=== PATIENT | male | born 1945 | race Caucasian/White ===

== ENCOUNTER → 2019-04-23 12:09 | Outpatient (CLI) | payer MEDICARE, SELFPAY ==
[2015-05-11 23:44] VITALS: BMI 35.0
--- NOTE | 2019-04-23 12:28 | RAD_ITS ---
STUDY: X-RAY - ABDOMEN/PELVIS REASON FOR EXAM: Male, 74 years old. Constipation. Fecal impaction. TECHNIQUE: AP supine and upright views of the abdomen and pelvis. COMPARISON: None. FINDINGS: Normal visualized lung bases. There is an abundance of fecal material throughout the colon. There is no demonstrated free abdominal air. The visualized liver, spleen and kidneys are grossly normal in size and morphology. Atherosclerotic changes of the abdominal aorta and the splenic artery. There are diffuse degenerative changes of the visualized lumbar spine. Status post right total hip replacement. RAD/Abd Inc Decub and/or Erect IMPRESSION: Large amount of fecal material is seen in the colon. Electronically Signed: Anil Phillips, at 13:06 EDT , Service support ,
[2019-04-23 12:45] LABS: Absolute Lymphocyte Count 3.13 X10^3/uL (0.83-4.51); Absolute Neutrophil Count 6.1 X10^3/uL (2.0-7.7); Basophil# 0.03 X10^3/uL; Basophil% 0.3 % (0-1); Eosinophils% 1.9 % (0-5); Hematocrit 45.1 % (40-54); Hemoglobin 14.6 g/dL (13.0-16.5); Lymphocyte # 3.13 X10^3/ul (4.0); Lymphocyte % 30.4 % (19-41); Mean Corp Hgb Conc 32.4 g/dL (32-36); Mean Corpuscular Hgb 26.8 pg (27.0-32.0); Mean Corpuscular Volume 82.9 fL (80-94); Mean Platelet Vol. 10.6 fl (6.2-12.0); Monocyte# 0.76 X10^3/uL; Monocyte% 7.4 % (0-10); NRBC Flagged by Analyzer 0 % (0-5); Neutrophil # 6.14 X10^3/uL (2.7-7.7); Neutrophil % 59.5 % (47-70); Platelet Count 241 K/mm3 (150-450); RBC Distribution Width CV 13.3 % (11.6-14.6); RBC Distribution Width SD 39.8 fl (35.1-43.9); Red Blood Count 5.44 M/mm3 (4.6-6.2); White Blood Count 10.3 K/mm3 (4.4-11.0)
[2019-04-23 17:15] LABS: ALB/GLOB Ratio 1.1 RATIO (0.9-2.4); AST(SGOT) 33 U/L (15-37); Alanine Aminotransfer ALT/SGPT 50 U/L (16-61); Albumin, Serum 3.9 g/dL (3.2-5.0); Alkaline Phosphatase 77 U/L (45-117); Anion Gap 12 (5-15); BUN 31 mg/dL (7-18); BUN/Creat Ratio 18.2 RATIO (10-20); Calcium,Total 9.9 mg/dL (8.5-10.1); Chloride 97 mmol/L (98-107); Cholesterol 166 mg/dL (200); EST Glomerular Filtration Rate 42 mL/min (>60); Est Glom Filt Rate - Afr Amer 51 mL/min (>60); Globulin 3.7 g/dL (2.2-4.2); Glucose 120 mg/dL (74-106); High Density Lipoprotein 44 mg/dL; Potassium 3.4 mmol/L (3.5-5.1); Protein, Total 7.6 g/dL (6.4-8.2); Sodium Level 139 mmol/L (136-145); Triglycerides 215 mg/dL; Very Low Density Lipoprotein 43 mg/dL (5-40)
== END ==
LOC: POLAB3 12:10 → RAD 12:25
PROVIDERS: Family Provider Family Medicine Geriatric Medicine; PCP Family Medicine Geriatric Medicine; Referring Provider Family Medicine Geriatric Medicine; Visit Provider Family Medicine Geriatric Medicine
DX: K56.41 Fecal impaction (principal); E78.5 Hyperlipidemia, unspecified; I10 Essential (primary) hypertension
CPT/HCPCS: 36415; 74019; 80053; 80061; 84443; 85025

== ENCOUNTER → 2019-04-30 14:56 | Outpatient (CLI) | payer MEDICARE, SELFPAY ==
[2015-05-11 23:44] VITALS: BMI 35.0
[2019-04-30 16:21] LABS: Anion Gap 6 (5-15); BUN 18 mg/dL (7-18); BUN/Creat Ratio 16.8 RATIO (10-20); Calcium,Total 9.2 mg/dL (8.5-10.1); Chloride 106 mmol/L (98-107); Creatinine, Serum 1.07 mg/dL (0.70-1.30); EST Glomerular Filtration Rate 72 mL/min (>60); Est Glom Filt Rate - Afr Amer 87 mL/min (>60); Glucose 98 mg/dL (74-106); Potassium 4.1 mmol/L (3.5-5.1); Sodium Level 142 mmol/L (136-145)
== END ==
PROVIDERS: Family Provider Family Medicine Geriatric Medicine; PCP Family Medicine Geriatric Medicine; Visit Provider Family Medicine Geriatric Medicine
DX: N18.3 Chronic kidney disease, stage 3 (moderate) (principal)
CPT/HCPCS: 36415; 80048

== ENCOUNTER → 2019-05-11 16:08 | Outpatient (CLI) | payer MEDICARE, SELFPAY ==
[2015-05-11 23:44] VITALS: BMI 35.0
--- NOTE | 2019-05-11 16:10 | RAD_ITS ---
STUDY: X-RAY - PELVIS AND LEFT HIP REASON FOR EXAM: Male, 74 years old. Pain TECHNIQUE: 3 views of the pelvis and hip. COMPARISON: None. FINDINGS: There is a non-specific bowel gas pattern. Radiation seeds noted within the bed of the prostate Normal bilateral iliac wings, sacroiliac joints and visualized sacrum. Normal bilateral superior and inferior pubic rami. Normal pubic symphysis. Normal bilateral ischial tuberosities. Right hip prosthesis noted in anatomic alignment and position. Concentric narrowing of the left hip joint with mild acetabular and femoral head spurring. RAD/HIP, UNI W/ Pelvis 2-3 Views IMPRESSION: Advanced arthritic changes of the left hip Electronically Signed: Blaze Dickson MD at 17:00 EDT , Service support ,
--- NOTE | 2019-05-11 16:10 | RAD_ITS ---
STUDY: X-RAY - RIGHT KNEE REASON FOR EXAM: Male, 74 years old. Pain TECHNIQUE: 4 view(s) of the knee. COMPARISON: None. FINDINGS: Normal visualized distal femur. Normal visualized proximal tibia and fibula. Normal proximal tibiofibular articulation. Narrowed medial femorotibial compartment. Normal lateral femorotibial compartment. Narrowed patellofemoral articulation. The soft tissue structures are unremarkable. RAD/Knee 4 or More Views IMPRESSION: Degenerative changes. No acute fracture or other significant bony pathology Electronically Signed: Blaze Dickson MD at 17:00 EDT , Service support ,
== END ==
PROVIDERS: Family Provider Family Medicine Geriatric Medicine; PCP Family Medicine Geriatric Medicine; Referring Provider Family Medicine Geriatric Medicine; Visit Provider Family Medicine Geriatric Medicine
DX: M17.11 Unilateral primary osteoarthritis, right knee (principal); M16.12 Unilateral primary osteoarthritis, left hip
CPT/HCPCS: 73502; 73564

== ENCOUNTER → 2019-07-23 11:28 | Outpatient (CLI) | payer MEDICARE, SELFPAY ==
[2019-06-11 15:37] VITALS: BMI 34.1
[2019-07-23 12:37] LABS: Absolute Lymphocyte Count 2.11 X10^3/uL (0.83-4.51); Absolute Neutrophil Count 5.6 X10^3/uL (2.0-7.7); Basophil# 0.04 X10^3/uL; Basophil% 0.4 % (0-1); Eosinophil# 0.27 X10^3/uL; Hematocrit 43.2 % (40-54); Hemoglobin 13.7 g/dL (13.0-16.5); Lymphocyte # 2.11 X10^3/ul (4.0); Lymphocyte % 23.5 % (19-41); Mean Corp Hgb Conc 31.7 g/dL (32-36); Mean Corpuscular Hgb 27.2 pg (27.0-32.0); Mean Corpuscular Volume 85.9 fL (80-94); Mean Platelet Vol. 10.7 fl (6.2-12.0); Monocyte# 0.84 X10^3/uL; Monocyte% 9.4 % (0-10); NRBC Flagged by Analyzer 0 % (0-5); Neutrophil # 5.62 X10^3/uL (2.7-7.7); Neutrophil % 62.8 % (47-70); Platelet Count 227 K/mm3 (150-450); RBC Distribution Width CV 14.4 % (11.6-14.6); RBC Distribution Width SD 44.9 fl (35.1-43.9); Red Blood Count 5.03 M/mm3 (4.6-6.2)
[2019-07-23 12:54] LABS: Vitamin D,25 Hydroxy 23.5 ng/mL (29.95-100.01)
[2019-07-23 12:57] LABS: ALB/GLOB Ratio 0.9 RATIO (0.9-2.4); AST(SGOT) 32 U/L (15-37); Alanine Aminotransfer ALT/SGPT 43 U/L (16-61); Albumin, Serum 3.4 g/dL (3.2-5.0); Alkaline Phosphatase 109 U/L (45-117); Anion Gap 6 (5-15); BUN 22 mg/dL (7-18); BUN/Creat Ratio 20.8 RATIO (10-20); Chloride 104 mmol/L (98-107); Cholesterol 184 mg/dL (200); Creatinine, Serum 1.06 mg/dL (0.70-1.30); EST Glomerular Filtration Rate 72 mL/min (>60); Est Glom Filt Rate - Afr Amer 88 mL/min (>60); Globulin 3.9 g/dL (2.2-4.2); Glucose 102 mg/dL (74-106); High Density Lipoprotein 67 mg/dL; Potassium 4.1 mmol/L (3.5-5.1); Protein, Total 7.3 g/dL (6.4-8.2); Sodium Level 140 mmol/L (136-145); Triglycerides 121 mg/dL; Very Low Density Lipoprotein 24 mg/dL (5-40)
== END ==
PROVIDERS: Family Provider Family Medicine Geriatric Medicine; PCP Family Medicine Geriatric Medicine; Visit Provider Family Medicine Geriatric Medicine
DX: E11.65 Type 2 diabetes mellitus with hyperglycemia (principal); I10 Essential (primary) hypertension; E55.9 Vitamin D deficiency, unspecified; E78.5 Hyperlipidemia, unspecified
CPT/HCPCS: 36415; 80053; 80061; 82306; 84443; 85025

== ENCOUNTER → 2019-08-03 14:00 | Outpatient (CLI) | payer MEDICARE, SELFPAY ==
[2019-06-11 15:37] VITALS: BP 140/89; PULSE 73; RESP 16; TEMP 36.8; O2SAT 98; BMI 34.1
--- NOTE | 2019-06-11 16:03 | SDCEKG_ITS ---
Test Reason : Blood Pressure : / mmHG Vent. Rate : 073 BPM Atrial Rate : 073 BPM P-R Int : 186 ms QRS Dur : 082 ms QT Int : 396 ms P-R-T Axes : 046 014 055 degrees QTc Int : 436 ms Normal sinus rhythm Normal ECG Confirmed by SETH SEGURA, HUONG ([id number]), editor farm journal NORMAN CORTEZ ([id number]) on 06/15/2019 9:50:32 AM Referred By: Jeffrey Vallejo Confirmed By:HUONG ANN MD
[2019-06-11 17:11] LABS: Absolute Lymphocyte Count 2.32 X10^3/uL (0.83-4.51); Absolute Neutrophil Count 6.2 X10^3/uL (2.0-7.7); Basophil# 0.03 X10^3/uL; Basophil% 0.3 % (0-1); Eosinophils% 3.1 % (0-5); Hematocrit 43.3 % (40-54); Hemoglobin 13.9 g/dL (13.0-16.5); Lymphocyte # 2.32 X10^3/ul (4.0); Mean Corp Hgb Conc 32.1 g/dL (32-36); Mean Corpuscular Hgb 27.1 pg (27.0-32.0); Mean Corpuscular Volume 84.4 fL (80-94); Mean Platelet Vol. 10.3 fl (6.2-12.0); Monocyte% 8.3 % (0-10); NRBC Flagged by Analyzer 0 % (0-5); Neutrophil # 6.17 X10^3/uL (2.7-7.7); Platelet Count 218 K/mm3 (150-450); RBC Distribution Width CV 14.2 % (11.6-14.6); RBC Distribution Width SD 43.8 fl (35.1-43.9); Red Blood Count 5.13 M/mm3 (4.6-6.2); White Blood Count 9.7 K/mm3 (4.4-11.0)
[2019-06-11 17:20] LABS: Prothrombin Time (Protime)PT. 13.4 SECONDS (11.7-14.9)
[2019-06-11 17:21] LABS: Partial Thromboplast Time 28.3 Seconds (24.1-36.2)
[2019-06-11 17:42] LABS: AST(SGOT) 29 U/L (15-37); Alanine Aminotransfer ALT/SGPT 46 U/L (16-61); Albumin, Serum 3.5 g/dL (3.2-5.0); Alkaline Phosphatase 89 U/L (45-117); Anion Gap 6 (5-15); BUN 21 mg/dL (7-18); Bilirubin, Direct 0.15 mg/dL (0.00-0.30); Calcium,Total 9.9 mg/dL (8.5-10.1); Chloride 102 mmol/L (98-107); Creatinine, Serum 1.05 mg/dL (0.70-1.30); EST Glomerular Filtration Rate 73 mL/min (>60); Est Glom Filt Rate - Afr Amer 89 mL/min (>60); Estimated Creatinine Clearance 66.72 ml/min; Globulin 3.7 g/dL (2.2-4.2); Glucose 93 mg/dL (74-106); Potassium 3.7 mmol/L (3.5-5.1); Protein, Total 7.2 g/dL (6.4-8.2); Sodium Level 139 mmol/L (136-145)
== END ==
PROVIDERS: Anesthesiology; Family Provider Family Medicine Geriatric Medicine; PCP Family Medicine Geriatric Medicine; Referring Provider Orthopaedic Surgery; Visit Provider Orthopaedic Surgery
DX: Z01.818 Encounter for other preprocedural examination (principal); Z01.810 Encounter for preprocedural cardiovascular examination; Z86.2 Personal history of diseases of the blood and blood-forming organs and certain disorders involving the immune mechanism; G47.30 Sleep apnea, unspecified; I10 Essential (primary) hypertension
CPT/HCPCS: 36415; 80048; 80076; 85025; 85610; 85730; 87081; 93005

== ENCOUNTER 2019-09-28 06:46 | Observation (INO) | payer MEDICARE, SELFPAY ==
[2019-06-11 15:37] VITALS: BMI 34.1
[2019-09-18 15:05] VITALS: BP 127/78; PULSE 70; RESP 18; TEMP 36.8; O2SAT 96; BMI 35.8
[2019-09-18 16:04] LABS: Basophil# 0.03 X10^3/uL; Basophil% 0.3 % (0-1); Eosinophil# 0.23 X10^3/uL; Eosinophils% 2.3 % (0-5); Hemoglobin 14.1 g/dL (13.0-16.5); Lymphocyte % 27.4 % (19-41); Mean Corp Hgb Conc 32.8 g/dL (32-36); Mean Corpuscular Hgb 27.3 pg (27.0-32.0); Mean Corpuscular Volume 83.2 fL (80-94); Mean Platelet Vol. 10.1 fl (6.2-12.0); Monocyte% 9.1 % (0-10); NRBC Flagged by Analyzer 0 % (0-5); Neutrophil # 5.96 X10^3/uL (2.7-7.7); Neutrophil % 60.4 % (47-70); Platelet Count 220 K/mm3 (150-450); RBC Distribution Width CV 12.9 % (11.6-14.6); Red Blood Count 5.17 M/mm3 (4.6-6.2); White Blood Count 9.9 K/mm3 (4.4-11.0)
[2019-09-18 17:18] LABS: Anion Gap 3 (5-15); BUN 27 mg/dL (7-18); BUN/Creat Ratio 22.5 RATIO (10-20); Calcium,Total 9.5 mg/dL (8.5-10.1); Chloride 106 mmol/L (98-107); EST Glomerular Filtration Rate 63 mL/min (>60); Est Glom Filt Rate - Afr Amer 76 mL/min (>60); Estimated Creatinine Clearance 58.38 ml/min; Glucose 96 mg/dL (74-106); Potassium 4.3 mmol/L (3.5-5.1); Sodium Level 140 mmol/L (136-145)
[2019-09-28] VITALS (10 sets, daily range): BP systolic 123–161; BP diastolic 66–89; PULSE 16–92; RESP 16–18; TEMP 36–37.1; O2SAT 94–100; BMI 35.8; BMI 35.7
[2019-09-28] MEDS: Lactated Ringers 1,000 ML 999 ML IV ×2 (07:24→11:20)
[2019-09-28 07:25] LABS: Magnesium 2.2 mg/dL (1.6-2.6)
[2019-09-28] MEDS: Gabapentin 600 MG Tablet PO (07:25)
[2019-09-28] MEDS: Acetaminophen 500 MG Tablet 1000 MG PO ×2 (07:25→21:21)
[2019-09-28 07:51] LABS: Bedside Glucose 91 mg/dL (70-110)
--- NOTE | 2019-09-28 09:15 | HIP_PTH ---
PATIENT: FERNANDEZ WHITE LOC: MS3 U#:[id number] AGE/SX: 74/M ROOM: FL321 RE09/28/[address]: Dr. Jeffrey Vallejo DO : 1945 BED: 1 DIS: 09/30/2019 SPEC #: [id number] RECD: 09/28/19 12:59 STATUS: FRANCESCO REQ #: [id number] WIMLAR: 09/28/19 09:[address]: Jeffrey Vallejo DEPT: SURGICAL PATHOLOGY RECD BY: Royal Fraga ENTERED: 09/28/19 14:01 SP TYPE: TOTAL HIP OTHR DR: Dr. Ruben Colvin MD Tissues: Hip, NOS Procedures: Decalcification bone/plaque Surgery Specimen Level IV HEADER OPERATION: ERAS, total hip replacement PRE-OP DIAGNOSIS: Osteoarthritis left hip TISSUE SUBMITTED: Bone and tissue left hip MICROSCOPIC DIAGNOSIS Bone and soft tissue of left hip, total hip resection: Severe degenerative joint disease. AM:winnie 10/06/19 MICROSCOPIC DESCRIPTION Slides are reviewed. GROSS DESCRIPTION Received is one container labeled with the patient's name and designated bone and soft tissue hip, left. The specimen consists of a dickson femoral head measuring 6.8 x 5.9 x 5.8 cm. The articular surface displays prominent osteophyte formation, eburnation and bone erosion. Hris Specialist sections are submitted in two cassettes after decalcification. / AM:winnie 09/28/19 TC:5 CPT: 08868, 50586
[2019-09-28] MEDS: Triamcinolone Acetonide 40 MG/ML Vial (10:55)
--- NOTE | 2019-09-28 11:20 | RAD_ITS ---
STUDY: X-RAY - PELVIS AND LEFT HIP REASON FOR EXAM: Male, 74 years old. POST OP PORTABLE LEFT HIP. TECHNIQUE: 2 views of the pelvis and hip. COMPARISON: None. FINDINGS: Bilateral hip prostheses with normal alignment. Postoperative soft tissue changes on the left. Left-sided skin liza. No acute fractures. RAD/Hip Min 2 Views (Portable) IMPRESSION: Left hip arthroplasty with normal alignment. Electronically Signed: Cyrus Trujillo MD at 12:29 EDT Tel , Service support ,
[2019-09-28] MEDS: Lactated Ringers 1,000 ML 125 ML IV (11:45)
[2019-09-28 11:57] LABS: Hematocrit 38.2 % (40-54); Hemoglobin 12.2 g/dL (13.0-16.5); Mean Corp Hgb Conc 31.9 g/dL (32-36); Mean Corpuscular Hgb 27.3 pg (27.0-32.0); Mean Corpuscular Volume 85.5 fL (80-94); Mean Platelet Vol. 10.3 fl (6.2-12.0); Platelet Count 153 K/mm3 (150-450); RBC Distribution Width SD 39.9 fl (35.1-43.9); Red Blood Count 4.47 M/mm3 (4.6-6.2); White Blood Count 11.1 K/mm3 (4.4-11.0)
[2019-09-28 12:12] LABS: Anion Gap 7 (5-15); BUN 21 mg/dL (7-18); BUN/Creat Ratio 20.6 RATIO (10-20); Calcium,Total 8.6 mg/dL (8.5-10.1); Chloride 105 mmol/L (98-107); Creatinine, Serum 1.02 mg/dL (0.70-1.30); EST Glomerular Filtration Rate 76 mL/min (>60); Est Glom Filt Rate - Afr Amer 91 mL/min (>60); Estimated Creatinine Clearance 68.68 ml/min; Glucose 162 mg/dL (74-106); Potassium 4.4 mmol/L (3.5-5.1); Sodium Level 139 mmol/L (136-145)
--- NOTE | 2019-09-28 14:49 | OP.PCM_ITS ---
Report of Operation Date of Procedure: 09/28/19 Pre-Operative Diagnosis: OA Left hip and Left knee Post-Operative Diagnosis: same Surgery/Procedure Performed:: Left THR and cortisone injection left knee Description of Surgical Findings:: Primary Surgeon/Physician: Jeffrey Vallejo hollow handle bench worker: Zan Morgan PA-C hollow handle bench worker: Pre-Operative Diagnosis: OA left hip and left knee Post-Operative Diagnosis: same Surgery/Procedure Performed: Left THR and cortisone injection left knee Estimated Blood Loss: 75 cc Specimen's Removed: femoral head Type of Anesthesia: spinal ASA Class: ASA3 Severe Disease Implants: [Dryden Trident Tritanium size 54 mm cup, Accolade II size 6 stem, +4 MDM cermic on polyethylene liner ] Surgical Indications: Patient has severe end-stage osteoarthritic changes in the [left ] hip. They have failed conservative measures including activity modification, anti-inflammatories, use of assistive devices. This to the point where the pain affects their ability to enjoy life and complete activities of daily living without discomfort. Patient has elected to undergo the above procedure Procedure Description: The patient was greeted in the preoperative area the [left ] hip was marked with surgical marker preoperative antibiotics administered. The patient was then taken to or suite in stable condition. Preoperative tranexamic acid was also utilized. Once the patient was placed in the supine position on the operating room table and once adequate anesthesia was obtained they were then placed in the lateral decubitus position with the surgical hip facing the field. All bony prominences were well-padded. A commercial hip position was utilized. The appropriate extremity was then prepped and draped in usual sterile fashion. Ioban was placed on the skin. Surgical timeout was performed and surgery was commenced. A standard posterior approach to the hip was then performed. Incision was planned and carried out with a #10 blade scalpel. Dissection was then carried length of the incision to the IT band which was split proximally and distally. A Charnley retractor was then placed for soft tissue retraction exposing the piriformis. A standard posterior capsulotomy was performed. Severe eburnation of bone was noted and periarticular osteophytes were identified consistent with severe end-stage osteoarthritis. A femoral neck osteotomy guide was used to tanna the proximal femur. A femoral osteotomy was then created approximately 1 fingerbreadth above the lesser trochanter. This was measured and placed on the back table. Once this was complete acetabular retractors were placed anteriorly and posteriorly. Labrum was then removed from the acetabulum exposing the entire cup of the acetabulum. Sequential reaming was then commenced and the acetabulum was medialized and sequentially widened in order to accommodate appropriate size cup . The acetabular cup was then impacted into position to the appropriate depth referencing approximately 30? anteversion and 45? of inclination. Excellent purchase was obtained. An appropriate size MDM liner was then placed. Attention was then turned to the femoral preparation. The hip was placed in the 90/90 position and a lateralizing box osteotome was utilized. Femoral starting awl was used followed by sequential broaching to the appropriate size. Excellent purchase was obtained with the stem no stem subsidence and excellent rotational stability was confirmed. A calcar reamer was then used in the trial head neck was placed on the broach. The hip was then located and taken through full range of motion flexion internal and external rotation as well as extension. Excellent stability was noted no impingement was identified of the components and leg lengths appear to be appropriate. The hip was at this point dislocated and the trial femoral components were removed. The final femoral stem was then implanted and impacted to the appropriate depth. Again excellent purchase was obtained no stem subsidence or rotational instability was noted. The hip was once again trialed and confirmation of leg length and stability was performed. Soft tissue tension also appeared to be appropriate. At this point the hip was redislocated and the trunnion was cleaned and dried meticulously in the appropriate size MDM femoral head was placed on the clean dry trunnion using a 12/14 Ruvalcaba taper. The hip was once again relocated and again taken through full range of motion. I did inject a cocktail of postoperative pain medication in the deep and superficial tissues. Copious irrigation was performed. Anatomic closure of the piriformis tendon was performed through drill holes in the greater trochanter. A #1 Vicryl 0 Vicryl was utilized in subcutaneous tissue and surgical liza were placed in the skin. A well-padded nonadherent dressing was applied. Patient was taken to PACU in stable condition. No complications were identified. Will follow standard postop protocol for total hip arthroplasty. Under sterile conditions, the left knee was injected with 2 cc of Kenalog and 4 cc of 0.5% bupivicaine. My data control assistant played a vital role in the procedure beginning with positioning, holding retraction of soft tissues, positioning the leg to optimize visualization during the procedure and assisting with wound closure. hollow handle bench worker: Zan Morgan Type of Anesthesia:: Spinal Anesthesiologist: Jaydon Casillas - Admit VTE Documentation VTE Present on Admission: No VTE Mechan Device Prophylaxis: SCD's, Thigh High BRENDA Hose VTE Pharm Prophylaxis ordered?: Yes
[2019-09-28] MEDS: Cefazolin 1 GM/50 ML BAG IV (17:58)
[2019-09-28] MEDS: Furosemide 40 MG Tablet PO (17:59)
[2019-09-28] MEDS: oxyCODONE 5 MG Tablet PO ×3 (18:04→23:54)
[2019-09-28] MEDS: Senna/Docusate Sodium 1 Tablet 2 TABLET PO (21:20)
[2019-09-28] MEDS: Dorzolamide 2% 10ml Bottle 1 DRP OPHTHALMIC (21:20)
[2019-09-28] MEDS: Baclofen 10 MG Tablet PO (21:20)
[2019-09-28] MEDS: Aspirin 81 MG TAB.CHEW PO (21:20)
[2019-09-28] MEDS: Atorvastatin Calcium 40 MG Tablet PO (21:20)
[2019-09-29] MEDS: Cefazolin 1 GM/50 ML BAG IV (00:52)
[2019-09-29 03:04] VITALS: BP 131/66; PULSE 88; RESP 18; TEMP 36.8; O2SAT 94
[2019-09-29] MEDS: oxyCODONE 5 MG Tablet PO ×3 (03:50→21:19)
[2019-09-29 06:20] LABS: Hematocrit 34.6 % (40-54); Hemoglobin 11.2 g/dL (13.0-16.5); Mean Corp Hgb Conc 32.4 g/dL (32-36); Mean Corpuscular Hgb 27.1 pg (27.0-32.0); Mean Corpuscular Volume 83.6 fL (80-94); Mean Platelet Vol. 10.6 fl (6.2-12.0); Platelet Count 163 K/mm3 (150-450); RBC Distribution Width CV 13.2 % (11.6-14.6); RBC Distribution Width SD 39.6 fl (35.1-43.9); Red Blood Count 4.14 M/mm3 (4.6-6.2); White Blood Count 17.4 K/mm3 (4.4-11.0)
[2019-09-29] MEDS: Acetaminophen 500 MG Tablet 1000 MG PO ×3 (06:46→21:15)
[2019-09-29 06:56] LABS: Anion Gap 2 (5-15); BUN 22 mg/dL (7-18); Calcium,Total 8.8 mg/dL (8.5-10.1); Chloride 107 mmol/L (98-107); EST Glomerular Filtration Rate 69 mL/min (>60); Est Glom Filt Rate - Afr Amer 84 mL/min (>60); Estimated Creatinine Clearance 63.69 ml/min; Glucose 169 mg/dL (74-106); Sodium Level 138 mmol/L (136-145)
--- NOTE | 2019-09-29 08:14 | PN.ORTHO_ITS ---
Subjective: Patient sitting at bedside eating breakfast. Patient states pain is well- managed. Patient denies chest pain, shortness of breath, calf pain, nausea vomiting. Patient is requesting to be admitted to [facility] for floor rehab for his postop rehab. Objective: Dressings clean dry intact. Negative signs and symptoms of DVT. Vital signs labs were all noted in the medical record. Patient does have an elevated white count, however is afebrile. Patient did receive an intra-articular injection of a steroid to the left knee. Patient neurovascular is otherwise intact patient is afebrile. Patient is in no respiratory distress speaking in full sentences. - Physical Exam Vitals/I&O's: Vital Signs Temp Pulse Resp BP Pulse Ox 98.3 F 88 18 131/66 H 94 09/29/19 03:04 09/29/19 03:04 09/29/19 03:04 09/29/19 03:04 09/29/19 03:04 Oxygen Flow Rate (L/min) 2 Oxygen Delivery Method Nasal Cannula Weight: 119.8 kg Body Mass Index (BMI) 35.7 Intake and Output for Last 24 Hours 09/27/19 09/28/19 09/29/19 23:59 23:59 23:59 Intake Total 3489 / 3989 700 / 700 Output Total 1100 / 1100 650 / 650 Balance 2389 / 2889 50 / 50 General: Alert, Oriented x3, Cooperative HEENT: PERRLA Oral: Moist Mucosa Neurological: Cranial nerves II-XII grossly intact Psych/Mental Status: Normal Affect, Alert and oriented to time, place, person, mood and affect Laboratory Results 09/28/19 11:50: WBC 11.1 H, RBC 4.47 L, Hgb 12.2 L, Hct 38.2 L, MCV 85.5, MCH 27.3, MCHC 31.9 L, RDW Std Deviation 39.9, RDW Coeff of Wisam 13.0, Plt Count 153, MPV 10.3 09/28/19 11:50: Sodium 139, Potassium 4.4, Chloride 105, Carbon Dioxide 27.0, Anion Gap 7, BUN 21 H, Creatinine 1.02, Estim Creat Clear Calc 68.68, Est GFR (MDRD) Af Amer 91, Est GFR (MDRD) Non-Af 76, BUN/Creatinine Ratio 20.6 H, Glucose 162 H, Calcium 8.6 09/29/19 06:00: WBC 17.4 H, RBC 4.14 L, Hgb 11.2 L, Hct 34.6 L, MCV 83.6, MCH 27.1, MCHC 32.4, RDW Std Deviation 39.6, RDW Coeff of Wisam 13.2, Plt Count 163, MPV 10.6 09/29/19 06:00: Sodium 138, Potassium 5.0, Chloride 107, Carbon Dioxide 29.0, Anion Gap 2 L, BUN 22 H, Creatinine 1.10, Estim Creat Clear Calc 63.69, Est GFR (MDRD) Af Amer 84, Est GFR (MDRD) Non-Af 69, BUN/Creatinine Ratio 20.0, Glucose 169 H, Calcium 8.8 Current Medications Acetaminophen (Tylenol) 1,000 mg PO Q8 [facility] Last Admin: 09/29/19 06:46 Dose: 1,000 mg Documented by: Aspirin (Aspirin, Baby) 81 mg PO BID [facility] Last Admin: 09/28/19 21:20 Dose: 81 mg Documented by: Atorvastatin Calcium (Lipitor) 40 mg PO QHS [facility] Last Admin: 09/28/19 21:20 Dose: 40 mg Documented by: Baclofen (Lioresal) 10 mg PO QHS [facility] Last Admin: 09/28/19 21:20 Dose: 10 mg Documented by: Dorzolamide HCl (Trusopt) 1 drop OPHTHALMIC QHS [facility] Last Admin: 09/28/19 21:20 Dose: 1 drop Documented by: Furosemide (Lasix) 40 mg PO 1000,1800 [facility] Last Admin: 09/28/19 17:59 Dose: 40 mg Documented by: Gabapentin (Neurontin) 300 mg PO DAILY [facility] Metoprolol Succinate (Toprol Xl (Beta Isidoro)) 25 mg PO DAILY [facility] Ondansetron HCl (Zofran) 4 mg IV Q8H PRN PRN PRN Reason: NAUSEA Oxycodone HCl (Oxyir) 5 - 10 mg PO Q4H PRN PRN PRN Reason: Pain Score 4-10/10 Last Admin: 09/29/19 03:50 Dose: 10 mg Documented by: Promethazine HCl (Phenergan) 12.5 mg IM Q6H PRN PRN; Protocol PRN Reason: NAUSEA/VOMITING Senna/Docusate Sodium (Senokot-S, Manjula-Colace) 2 tablet PO BID [facility] Last Admin: 09/28/19 21:20 Dose: 2 tablet Documented by: Sodium Chloride () 10 - 40 ml IV UD PRN PRN Reason: SALINE FLUSH Medical Necessity - Tobacco Use Smoking Status: Never smoker Assessment/Plan Status post left total hip arthroplasty Status post intra-articular injection of the left knee with 4 cc 1% lidocaine, 2 cc of Kenalog. Plan 1. Continue pain medications as prescribed 2. Continue physical therapy weight-bear as tolerated with walker. 3. Aspirin 81 mg 1 p.o. every 12 hours x30 days for postop DVT prophylaxis 4. Encourage incentive spirometry 5. Repeat CBC, BMP in the a.m. 6. Possible discharge to rehab tomorrow
[2019-09-29 08:32] VITALS: BP 128/82; PULSE 83; RESP 16; TEMP 37; O2SAT 92
[2019-09-29] MEDS: 0.9% Saline Lock 10 ML Syringe IV (08:47)
[2019-09-29] MEDS: Ketorolac 15 MG/ML Vial IV (08:47)
[2019-09-29 09:54] VITALS: PULSE 83
[2019-09-29] MEDS: Gabapentin 300 MG Capsule PO (09:54)
[2019-09-29] MEDS: Aspirin 81 MG TAB.CHEW PO ×2 (09:54→21:15)
[2019-09-29] MEDS: Metoprolol(XL)Succ 25 MG Tablet PO (09:54)
[2019-09-29] MEDS: Senna/Docusate Sodium 1 Tablet 2 TABLET PO ×2 (09:55→21:15)
[2019-09-29] MEDS: Furosemide 40 MG Tablet PO ×2 (09:55→17:34)
--- NOTE | 2019-09-29 10:30 | CASEMGMT ---
Social Work Assessment Referral Date: 09/29/2019 Date of Assessment: 09/29/2019 Reason for consult: Pt requesting TCU at discharge Informant: PT/OT Personal Status: SW met with pt to complete initial assessment. SW introduced self and role at [facility]. Pt is alert and orientated x3. Pt states that he lives home alone in a split level. Pt states he has seven steps to get down and seven steps to get up which total is 14 steps to get to the bathroom. Pt states bedroom, bathroom are upstairs and kitchen, living room are downstairs. Pt states that he still drives. Pt states that he has handrails on both sides of the steps. DME include cane, walker. PCP is Dr. Colvin, and Pharmacy is [facility]. Pt states that his of 52 years July 30, 2019 after a year of chemo and fighting lung cancer. Pt states he just got back from [place] dumping his 's ashes in [place]. SW offered support to pt, educated pt on bereavement counseling. Substance Abuse: Pt denied Mental Health: Pt denied SW provided pt with list of SNF that accept pt's insurance. Pt states that he prefers to go to [facility] TCU. SW informed pt that this worker did receive call from TCU stating they do have a bed available but informed pt that pre-cert will need to be obtained and this worker informed pt that he may get denied as he walked 175ft with PT/OT and insurances look at how far pt walks and with how much assistance. Pt states that he lives alone and has steps to enter. SW informed pt that pt's surgery was scheduled surgery and insurance looks at that. Pt states that he has one daughter but she lives in [facility] and is busy. SW informed pt that if pt gets denied for TCU the options are home with [facility], or home with outpatient therapy. SW informed pt that pre-cert can be submitted for TCU but informed pt that be thinking of back up options in the event that he gets denied SNF. Pt states understanding. CARLINE placed a call to [place] with TCU who states she will submit for pre-cert. Plan: TCU pending pre-cert Paula Smith LEARNING AND DEVELOPMENT ADMINISTRATOR, RN ORTHOPEDIC
--- NOTE | 2019-09-29 11:01 | CASEMGMT ---
Case Management Progress Note: This administrative underwriter to patient bedside, introduced self and role. Explained/reviewed [facility] form with patient in regards to current treatment this hospital admission. Informed Outpatient billing is determined by his insurance policy and continual review is conducted to determine any changes in condition that may warrant Inpatient stay. Patient acknowledges and states understanding. [facility] form signed and place in hard chart, patient provided a copy. Misty Raphael RNCM
--- NOTE | 2019-09-29 11:20 | CASEMGMT ---
Social Work Note CARLINE received call from Lety, pt's daughter wanting to discuss discharge plans. CARLINE informed Lety that this worker met with pt this morning and pt requested TCU. CARLINE informed Lety that TCU does have a bed available and can accept pt pending pre-cert. CARLINE informed Lety that pt did well with therapy so pt may get denied TCU. CARLINE informed Lety that if pt gets denied TCU pt will get denied all SNF. Lety states that pt lives alone has 14 steps to get to the bathroom. CARLINE informed Lety that this worker understands, but informed Lety that insurances look at how far pt walks and with how much assistance. CARLINE informed pt that if pt gets denied SNF, Dr. Vallejo could choose to do peer to peer but this worker informed Ltey that physician's can choose to not do peer to peer or physician could do peer to peer and it could still get denied. CARLINE informed Lety that if pt gets denied SNF, then the options are paying privately for SNF, Home with C or Home with outpatient therapy. Lety states understanding, would like to remain updated. Plan: TCU pending pre-cert Paula Smith OPEN HEARTH WORKER, WATER PURIFIER OPERATOR
[2019-09-29 18:52] VITALS: BP 130/72; PULSE 77; RESP 16; TEMP 36.8; O2SAT 95
[2019-09-29] MEDS: Dorzolamide 2% 10ml Bottle 1 DRP OPHTHALMIC (21:15)
[2019-09-29] MEDS: Atorvastatin Calcium 40 MG Tablet PO (21:15)
[2019-09-29] MEDS: Baclofen 10 MG Tablet PO (21:15)
[2019-09-30 02:00] VITALS: BP 144/87; PULSE 77; RESP 18; TEMP 36.7; O2SAT 97
[2019-09-30] MEDS: Acetaminophen 500 MG Tablet 1000 MG PO ×2 (05:44→14:06)
[2019-09-30 06:54] LABS: Absolute Lymphocyte Count 1.46 X10^3/uL (0.83-4.51); Absolute Neutrophil Count 17.1 X10^3/uL (2.0-7.7); Basophil# 0.02 X10^3/uL; Basophil% 0.1 % (0-1); Hematocrit 35.5 % (40-54); Hemoglobin 11.4 g/dL (13.0-16.5); Lymphocyte # 1.46 X10^3/ul (4.0); Lymphocyte % 7.4 % (19-41); Mean Corp Hgb Conc 32.1 g/dL (32-36); Mean Corpuscular Volume 83.9 fL (80-94); Mean Platelet Vol. 11.4 fl (6.2-12.0); Monocyte% 5.6 % (0-10); NRBC Flagged by Analyzer 0 % (0-5); Neutrophil # 17.08 X10^3/uL (2.7-7.7); Neutrophil % 86.3 % (47-70); Platelet Count 181 K/mm3 (150-450); RBC Distribution Width CV 13.5 % (11.6-14.6); RBC Distribution Width SD 41.5 fl (35.1-43.9); Red Blood Count 4.23 M/mm3 (4.6-6.2); White Blood Count 19.8 K/mm3 (4.4-11.0)
[2019-09-30 07:15] LABS: Anion Gap 4 (5-15); BUN 29 mg/dL (7-18); BUN/Creat Ratio 29.3 RATIO (10-20); Calcium,Total 9.2 mg/dL (8.5-10.1); Chloride 106 mmol/L (98-107); Creatinine, Serum 0.99 mg/dL (0.70-1.30); EST Glomerular Filtration Rate 78 mL/min (>60); Est Glom Filt Rate - Afr Amer 95 mL/min (>60); Estimated Creatinine Clearance 70.76 ml/min; Glucose 135 mg/dL (74-106); Potassium 3.9 mmol/L (3.5-5.1); Sodium Level 137 mmol/L (136-145)
[2019-09-30 09:04] VITALS: BP 152/91; PULSE 98; RESP 18; TEMP 37.2; O2SAT 98
--- NOTE | 2019-09-30 09:20 | CASEMGMT ---
Addendum entered by Paula Smith 09/30/19 10:47: CARLINE updated pt on approval to TCU and discharge today. Pt states understanding. CARLINE updated Reymundo MANZANARES on approval. CARLINE placed a call to pt's daughter Lety and left message to call this worker back to provide update on discharge. Original Note: Social Work Note CARLINE received message from Charley in TCU stating pre-cert has been obtained and pt is able to discharge to TCU today. Plan: TCU today Paula Smith ONLINE MARKETING ANALYST, CALL CENTER MANAGER
[2019-09-30] MEDS: oxyCODONE 5 MG Tablet PO ×2 (09:43→14:05)
[2019-09-30 09:44] VITALS: PULSE 98
[2019-09-30] MEDS: Gabapentin 300 MG Capsule PO (09:44)
[2019-09-30] MEDS: Metoprolol(XL)Succ 25 MG Tablet PO (09:44)
[2019-09-30] MEDS: Senna/Docusate Sodium 1 Tablet 2 TABLET PO (09:44)
[2019-09-30] MEDS: Aspirin 81 MG TAB.CHEW PO (09:44)
[2019-09-30] MEDS: Furosemide 40 MG Tablet PO (09:45)
--- NOTE | 2019-09-30 11:35 | PCM.PN.ORT ---
Subjective: Patient sitting at bedside working on his computer. Patient states pain is been well managed. Patient states he has been ambulating with use of a walker. Patient denies chest pain, shortness of breath, calf pain, nausea vomiting. No other complaints. Patient states he is ready for discharge to TCU. Objective: Dressings clean dry intact. Patient's white count is elevated at this time, however he is afebrile. Patient did receive an intra-articular injection to his left knee with Kenalog (steroid). Patient's vitals were reviewed and noted in the medical record. Patient is neurovascular intact, with good muscle tone and strength the lower extremities. Patient is no respiratory distress, speaking in full sentences. Signs and symptoms of DVT - Physical Exam Vitals/I&O's: Vital Signs Temp Pulse Resp BP Pulse Ox 98.9 F 98 18 152/91 H 98 09/30/19 09:04 09/30/19 09:44 09/30/19 09:04 09/30/19 09:04 09/30/19 09:04 Oxygen Flow Rate (L/min) 2 Oxygen Delivery Method Room Air Weight: 119.8 kg Body Mass Index (BMI) 35.7 Intake and Output for Last 24 Hours 09/28/19 09/29/19 09/30/19 23:59 23:59 23:59 Intake Total 3489 / 3989 700 / 900 400 / 400 Output Total 1100 / 1100 650 / 650 Balance 2389 / 2889 50 / 250 400 / 400 General: Alert, Oriented x3, Cooperative HEENT: PERRLA Oral: Moist Mucosa Cardiovascular: Regular rate Neurological: Cranial nerves II-XII grossly intact Psych/Mental Status: Normal Affect, Alert and oriented to time, place, person, mood and affect Laboratory Results 09/30/19 06:08: WBC 19.8 H, RBC 4.23 L, Hgb 11.4 L, Hct 35.5 L, MCV 83.9, MCH 27.0, MCHC 32.1, RDW Std Deviation 41.5, RDW Coeff of Wisam 13.5, Plt Count 181, MPV 11.4, Immature Gran % (Auto) 0.600, Neut % (Auto) 86.3 H, Lymph % (Auto) 7.4 L, [place] % (Auto) 5.6, Eos % (Auto) 0.0, Baso % (Auto) 0.1, Absolute Neuts (auto) 17.1 H, Absolute Lymphs (auto) 1.46, Nucleated RBC % 0 09/30/19 06:08: Sodium 137, Potassium 3.9, Chloride 106, Carbon Dioxide 27.0, Anion Gap 4 L, BUN 29 H, Creatinine 0.99, Estim Creat Clear Calc 70.76, Est GFR (MDRD) Af Amer 95, Est GFR (MDRD) Non-Af 78, BUN/Creatinine Ratio 29.3 H, Glucose 135 H, Calcium 9.2 Current Medications Acetaminophen (Tylenol) 1,000 mg PO Q8 [facility] Last Admin: 09/30/19 05:44 Dose: 1,000 mg Documented by: Aspirin (Aspirin, Baby) 81 mg PO BID [facility] Last Admin: 09/30/19 09:44 Dose: 81 mg Documented by: Atorvastatin Calcium (Lipitor) 40 mg PO QHS [facility] Last Admin: 09/29/19 21:15 Dose: 40 mg Documented by: Baclofen (Lioresal) 10 mg PO QHS [facility] Last Admin: 09/29/19 21:15 Dose: 10 mg Documented by: Dorzolamide HCl (Trusopt) 1 drop OPHTHALMIC QHS [facility] Last Admin: 09/29/19 21:15 Dose: 1 drop Documented by: Furosemide (Lasix) 40 mg PO 1000,1800 [facility] Last Admin: 09/30/19 09:45 Dose: 40 mg Documented by: Gabapentin (Neurontin) 300 mg PO DAILY [facility] Last Admin: 09/30/19 09:44 Dose: 300 mg Documented by: Metoprolol Succinate (Toprol Xl (Beta Isidoro)) 25 mg PO DAILY [facility] Last Admin: 09/30/19 09:44 Dose: 25 mg Documented by: Ondansetron HCl (Zofran) 4 mg IV Q8H PRN PRN PRN Reason: NAUSEA Oxycodone HCl (Oxyir) 5 - 10 mg PO Q4H PRN PRN PRN Reason: Pain Score 4-10/10 Last Admin: 09/30/19 09:43 Dose: 10 mg Documented by: Promethazine HCl (Phenergan) 12.5 mg IM Q6H PRN PRN; Protocol PRN Reason: NAUSEA/VOMITING Senna/Docusate Sodium (Senokot-S, Manjula-Colace) 2 tablet PO BID [facility] Last Admin: 09/30/19 09:44 Dose: 2 tablet Documented by: Sodium Chloride () 10 - 40 ml IV UD PRN PRN Reason: SALINE FLUSH Last Admin: 09/29/19 08:47 Dose: 10 ml Documented by: Medical Necessity - Tobacco Use Smoking Status: Never smoker Assessment/Plan Status post left total hip arthroplasty Status post intra-articular injection of the left knee with 4 cc 1% lidocaine, 2 cc of Kenalog. Elevated white count Plan 1. Continue pain medications as prescribed 2. Continue physical therapy weight-bear as tolerated with walker. 3. Aspirin 81 mg 1 p.o. every 12 hours x30 days for postop DVT prophylaxis 4. Encourage incentive spirometry 5. Repeat CBC, BMP in the a.m. 6. Discharge today to TCu 7. Shower 10/02/2019 8. Staple removal and dressing removal, on 10/09/2019 9. Follow-up as scheduled with Dr. Sutton (see pink sheet)
--- NOTE | 2019-09-30 11:46 | DCINST_ITS ---
Discharge Diet: No Restrictions Discharge Activity: May Not Drive, May Shower, Use Walker May shower in (days): 2 - only if incision is dry and without drainage. Do NOT soak/submerge in tub/pool/miller/stream/hot tub. May resume sexual activity in: No Restrictions Ice area for (Minutes): 20 - every hour while awake Weight Bearing Status: Weight bearing as tolerated Lifting Restrictions: 20 pounds Elevate: Operative Extremity Call your doctor if your incision/area has: Continuous Slow Oozing, Sudden Increased Bleeding, Increased Pain/ Swelling, Increased Redness, Foul Smelling Discharge Call your doctor if you observe: Fever of 101 or Higher, Inability to urinate, Inability to have a bowel movement, Shortness of breath, Fainting spells, Chest pain, Increased palpitations (irregular heartbeat), Calf discomfort, Uncontrolled pain Change Dressing in (Days):: 0 - Change daily and as needed. Remove Dressing in (days):: 8 Cleanse incision/area with: Soap & Water Allergies/Adverse Reactions: Allergies No Known Allergies Allergy (Verified 09/18/19 14:58) Medications to take at Discharge Gabapentin [Neurontin] 300 mg PO DAILY 05/11/15 Atorvastatin Calcium [Lipitor] 40 mg PO QHS 06/11/19 Baclofen 10 mg PO QHS 06/11/19 Dorzolamide HCl/Pf [Dorzolamide 2% Eye Drop] 1 drp OP QHS 06/11/19 Furosemide [Lasix] 40 mg PO BID 06/11/19 Metoprolol Succinate [Toprol Xl] 25 mg PO DAILY 06/11/19 Acetaminophen [Tylenol] 1,000 mg PO Q8 #90 tab 09/30/19 Aspirin [Aspirin, Baby] 81 mg PO BID #60 tab.chew 09/30/19 Oxycodone [Oxyir] 5 - 10 mg PO Q6H PRN PRN 7 Days #48 tab 09/30/19 Senna/Docusate Sodium [Senokot-S] 2 tab PO BID tab 09/30/19 The following prescriptions were given: Aspirin [Aspirin, Baby] 81 mg PO BID #60 tab.chew Transmission Status: Pending to [facility]/pharmacy #[id number] Oxycodone [Oxyir] 5 - 10 mg PO Q6H PRN PRN 7 Days #48 tab PRN Reason: Pain Score 4-10/10 Prescription Printed Acetaminophen [Tylenol] 1,000 mg PO Q8 #90 tab Transmission Status: Pending to [facility]/pharmacy #[id number] Primary Care Physician: Ruben Colvin Chi, MD [Primary Care Provider] - Test Results: Test results from this visit will be discussed in further detail at your follow- up appointment, if applicable. Please Follow Up With: Jeffrey Vallejo, DO When: as schuedled (see pink sheet)
[2019-09-30 14:11] VITALS: BP 130/74; PULSE 70; RESP 18; TEMP 36.8; O2SAT 98
== END 2019-09-30 14:55 | disposition skilled nursing facility (03) ==
LOC: ACINP 06:50 → MS3 09-29 08:30 → ACINP 09-29 08:47
PROVIDERS: Physician Assistant; Admitting Provider Orthopaedic Surgery; PCP Family Medicine Geriatric Medicine; Referring Provider Orthopaedic Surgery; Visit Provider Orthopaedic Surgery
PROC: 0SRB0JZ Replacement of Left Hip Joint with Synthetic Substitute, Open Approach (ICD-10-PCS; CPT 27130; principal; 2019-09-28 08:50)
DX: M16.12 Unilateral primary osteoarthritis, left hip (principal); M17.12 Unilateral primary osteoarthritis, left knee; E78.00 Pure hypercholesterolemia, unspecified; I10 Essential (primary) hypertension; G47.30 Sleep apnea, unspecified; G25.81 Restless legs syndrome; I25.10 Atherosclerotic heart disease of native coronary artery without angina pectoris; Z95.1 Presence of aortocoronary bypass graft; Z85.46 Personal history of malignant neoplasm of prostate; Z79.899 Other long term (current) drug therapy; Z79.82 Long term (current) use of aspirin; I73.9 Peripheral vascular disease, unspecified; Z95.2 Presence of prosthetic heart valve
CPT/HCPCS: 01214; 20610; 27130; 36415; 73502; 80048; 82962; 83735; 85025; 85027; 87081; 88305; 88311; 96361; 96365; 96366; 96375; 97110; 97162; 97166; 97530; 97535; 99218; C1776; J7120; A4216; G0378; G0379

== ENCOUNTER 2019-09-30 15:00 | Inpatient (IN) | payer MEDICARE, SELFPAY ==
[2019-09-28 14:07] VITALS: BMI 35.7
[2019-09-30 15:31] VITALS: BP 152/75; PULSE 92; RESP 14; TEMP 36.7; O2SAT 98; BMI 35.7
[2019-09-30] MEDS: Furosemide 40 MG Tablet PO (19:00)
[2019-09-30] MEDS: Aspirin 81 MG TAB.CHEW PO (19:00)
[2019-09-30] MEDS: Senna/Docusate Sodium 1 Tablet 2 TABLET PO (19:00)
[2019-09-30 19:51] VITALS: BP 133/76; PULSE 77; TEMP 36.8; O2SAT 96
--- NOTE | 2019-09-30 19:59 | HP.PCM_ITS ---
Problem List (1) Debility Status: Acute (2) Osteoarthritis of left hip Status: Chronic (3) Osteoarthritis of left knee Status: Chronic (4) Coronary artery disease Status: Chronic (5) Hearing loss Status: Chronic (6) Hyperlipidemia Status: Chronic (7) Sleep apnea Status: Chronic (8) PAOD (peripheral arterial occlusive disease) Status: Chronic (9) Edema Status: Chronic (10) Diabetic polyneuropathy Status: Chronic (11) Glaucoma Status: Chronic (12) Hypertension Status: Chronic History of Present Illness Date of Admission: 09/30/19 Chief Complaint: Here for rehabilitation, strengthening, prior to discharge home alone. The patient is a 74 year old Male with below past medical history with followin09/28/2019 Dr. Vallejo performed left total hip replacement, steroid injection left knee. Postoperative course uncomplicated. 09/30/2019 Admit to TCU with debility, here for rehabilitation, strengthening, prior to discharge home alone. Past Medical History Past Medical History (Chronic Problems): Chronic Problems Osteoarthritis of left hip (Chronic) Osteoarthritis of left knee (Chronic) Coronary artery disease (Chronic) Hearing loss (Chronic) Hyperlipidemia (Chronic) Sleep apnea (Chronic) PAOD (peripheral arterial occlusive disease) (Chronic) Edema (Chronic) Diabetic polyneuropathy (Chronic) Glaucoma (Chronic) Coronary artery disease status post CABG (Chronic) Acquired lactose intolerance (Chronic) Hypertension (Chronic) M?ni?re's disease (Chronic) Severe aortic stenosis (Chronic) Benign essential hypertension (Chronic) Allergies No Known Allergies Allergy (Verified 09/18/19 14:58) Home Medications: Ambulatory Orders Medication Instructions Recorded Gabapentin [Neurontin] 300 mg PO DAILY 05/11/15 Atorvastatin Calcium [Lipitor] 40 mg PO QHS 06/11/19 Baclofen 10 mg PO QHS 06/11/19 Dorzolamide HCl/Pf [Dorzolamide 2% 1 drp OP QHS 06/11/19 Eye Drop] Furosemide [Lasix] 40 mg PO BID 06/11/19 Metoprolol Succinate [Toprol Xl] 25 mg PO DAILY 06/11/19 Acetaminophen [Tylenol] 1,000 mg PO Q8 09/30/19 Aspirin [Aspirin, Baby] 81 mg PO BID 09/30/19 Oxycodone [Oxyir] 5 - 10 mg PO Q6H PRN PRN 7 Days 09/30/19 #48 tab Senna/Docusate Sodium [Senokot-S] 2 tab PO BID 09/30/19 Surgical History: coronary bypass surgery - x 4., total hip arthroplasty - Bilateral., - - Aortic valve replacement, right carpal tunnel release, radical prostatectomy. Psychiatric History: No pertinent psych hx Lives: Alone Smoking Status: Never smoker Tobacco Use: Non-smoker Alcohol: Occasional Drugs: None - *Family History Maternal History Items: No pertinent history Review of Systems Constitutional: Denies: Chills, Fever, Weight Change HEENT: Denies: Head Aches, Sinus Congestion, Sinus Drainage Cardiovascular: Denies: Chest Pain, Palpitations Respiratory: Denies: Cough, Shortness of breath at rest, Sputum production Gastrointestinal: Denies: Abdominal Pain, Nausea, Vomiting Genitourinary: Denies: Dysuria Musculoskeletal: Denies: Joint Pain, Joint Tenderness Skin: Denies: Rash, Wounds Neurological: Denies: Numbness, Tingling, Focal weakness Psychiatric: Denies: Anxiety, Depression, Homicidal Ideations, Suicidal Ideations Hematologic/ Lymphatic: Denies: Easy Bruising, Easy Bleeding VTE Information - Inpt Only VTE Present on Admission: No VTE Mechan Device Prophylaxis: Knee High BRENDA Hose VTE Pharm Prophylaxis ordered?: Yes Patient Problems: Active and Suspected Problems Debility (Acute) - Physical Exam Vitals/I&O's: Vital Signs Temp Pulse Resp BP Pulse Ox 98.3 F 77 14 133/76 H 96 09/30/19 19:51 09/30/19 19:51 09/30/19 15:31 09/30/19 19:51 09/30/19 19:51 Oxygen Delivery Method Room Air Weight: 119.465 kg Body Mass Index (BMI) 35.7 Intake and Output for Last 24 Hours 09/28/19 09/29/19 09/30/19 23:59 23:59 23:59 Intake Total 240 / 240 Balance 240 / 240 General: Alert, Oriented x3, Cooperative HEENT: Atraumatic, PERRLA, EOMI, Normocephalic Neck: Supple, No JVD, Negative Carotid Bruits Lungs: Clear to auscultation, Normal air movement Cardiovascular: Regular rate, No murmurs Abdomen: Bowel Sounds Present, Soft, Non Tender Extremities: No edema, Capillary Refill Less than 3 Seconds Skin: No rashes, No breakdown Musculoskeletal: No Tenderness to Palpation of Joints or Extremities Neurological: Cranial nerves II-XII grossly intact Psych/Mental Status: Normal Affect, Appropriate Current Medications Acetaminophen (Tylenol) 1,000 mg PO Q8 [facility] Aspirin [facility], [facility] Last Admin: 09/30/19 19:00 Dose: 81 mg Documented by: Atorvastatin Calcium (Lipitor) 40 mg PO QHS [facility] Baclofen (Lioresal) 10 mg PO QHS [facility] Dorzolamide HCl (Trusopt) 1 drop OPHTHALMIC QHS [facility] Furosemide (Lasix) 40 mg PO BID [facility] Last Admin: 09/30/19 19:00 Dose: 40 mg Documented by: Gabapentin (Neurontin) [facility] Metoprolol Succinate (Toprol Xl (Beta Isidoro)) 25 mg PO DAILY [facility] Oxycodone HCl (Oxyir) 5 - 10 mg PO Q6H PRN PRN PRN Reason: Pain Score 4-10/10 Senna/Docusate Sodium (Senokot-S, Manjula-Colace) 2 tablet PO BID [facility] Last Admin: 09/30/19 19:00 Dose: 2 tablet Documented by: Tuberculin PPD (Tubersol, Aplisol, Ppd) 5 tu ID [id number] ONE Stop: 10/01/19 10:01 Tuberculin PPD (Tubersol, Aplisol, Ppd) 5 tu ID [id number] ONE Stop: 10/08/19 10:01 Assessment/Plan All Active Problems Debility (Acute) 74 year old male with below past medical history hospitalized for left total hip replacement 09/28/[address] Vallejo, admitted to TCU with debility, here for rehabilitation, strengthening, prior to discharge home alone. * Debility - PT/OT. * Pain - Tylenol 1000MG Q8H, Oxycodone 5-10MG Q6H PRN Pain (4-6, 7-10) * Bowel - Miralax 17GM daily, Senna/colace 2 tablets BID, Dulcolax 10MG daily PRN. * Adult immunization - Administer Prevnar 13, Pneumovax 23, Fluzone as appropriate. * DVT prophylaxis - Aspirin 81MG BID thru 10/29/2019, then Aspirin 81MG daily. * Hyperlipidemia - Atorvastatin 40MG QHS. * Muscle spasm - Baclofen 10MG QHS. * Glaucoma - Trusopt 1GTT OU QHS. * Edema - Lasix 40MG BID. * Diabetic polyneuropathy - Gabapentin 300MG daily. * Coronary Artery Disease - Metoprolol succinate 25MG daily, Aspirin.
[2019-09-30 20:01] VITALS: BMI 35.7
[2019-09-30] MEDS: Dorzolamide 2% 10ml Bottle 1 DRP OPHTHALMIC (21:38)
[2019-09-30] MEDS: Atorvastatin Calcium 40 MG Tablet PO (21:39)
[2019-09-30] MEDS: Acetaminophen 500 MG Tablet 1000 MG PO (21:39)
[2019-09-30] MEDS: Baclofen 10 MG Tablet PO (21:39)
[2019-10-01] MEDS: oxyCODONE 5 MG Tablet PO ×3 (01:39→14:21)
[2019-10-01 06:09] VITALS: BP 147/87; PULSE 73
[2019-10-01] MEDS: Acetaminophen 500 MG Tablet 1000 MG PO ×3 (06:09→21:15)
[2019-10-01] MEDS: Polyethylene Glycol 3350 17 GM PACKET PO (06:09)
[2019-10-01] MEDS: Dorzolamide 2% 10ml Bottle 1 DRP OPHTHALMIC ×2 (06:09→17:52)
[2019-10-01] MEDS: Furosemide 40 MG Tablet PO (06:09)
[2019-10-01] MEDS: Senna/Docusate Sodium 1 Tablet 2 TABLET PO (06:09)
[2019-10-01] MEDS: Metoprolol(XL)Succ 25 MG Tablet PO (06:09)
[2019-10-01 06:46] LABS: Absolute Lymphocyte Count 1.87 X10^3/uL (0.83-4.51); Absolute Neutrophil Count 14.1 X10^3/uL (2.0-7.7); Basophil# 0.02 X10^3/uL; Basophil% 0.1 % (0-1); Hematocrit 37.8 % (40-54); Hemoglobin 12.2 g/dL (13.0-16.5); Lymphocyte # 1.87 X10^3/ul (4.0); Lymphocyte % 10.9 % (19-41); Mean Corp Hgb Conc 32.3 g/dL (32-36); Mean Corpuscular Hgb 27.6 pg (27.0-32.0); Mean Corpuscular Volume 85.5 fL (80-94); Monocyte# 1.18 X10^3/uL; Monocyte% 6.9 % (0-10); NRBC Flagged by Analyzer 0 % (0-5); Neutrophil # 14.05 X10^3/uL (2.7-7.7); Neutrophil % 81.6 % (47-70); Platelet Count 191 K/mm3 (150-450); RBC Distribution Width CV 13.6 % (11.6-14.6); RBC Distribution Width SD 42.1 fl (35.1-43.9); Red Blood Count 4.42 M/mm3 (4.6-6.2); White Blood Count 17.2 K/mm3 (4.4-11.0)
[2019-10-01 07:06] LABS: Anion Gap 5 (5-15); BUN 33 mg/dL (7-18); BUN/Creat Ratio 34.3 RATIO (10-20); Calcium,Total 9.4 mg/dL (8.5-10.1); Chloride 104 mmol/L (98-107); Creatinine, Serum 0.96 mg/dL (0.70-1.30); EST Glomerular Filtration Rate 81 mL/min (>60); Est Glom Filt Rate - Afr Amer 98 mL/min (>60); Estimated Creatinine Clearance 72.97 ml/min; Glucose 119 mg/dL (74-106); Sodium Level 140 mmol/L (136-145)
[2019-10-01] MEDS: Aspirin 81 MG TAB.CHEW PO ×2 (07:53→17:52)
[2019-10-01] MEDS: Gabapentin 300 MG Capsule PO (07:53)
[2019-10-01] MEDS: Tuberculin,Purif.prot.deriv. 50 TU/ML Vial 5 ML ID (10:51)
[2019-10-01 13:45] VITALS: BP 166/76; PULSE 81; RESP 16; TEMP 36.7; O2SAT 98
--- NOTE | 2019-10-01 14:41 | PHA.CONS_ITS ---
<JamalEllyn M - Last Filed: 10/01/19 14:41> Progress Note - Pharmacy Subjective: TCU ADMISSION Objective: Allergies No Known Allergies Allergy (Verified 09/18/19 14:58) Current Medications Generic Name Dose Route Start Last Admin Trade Name Freq PRN Reason Stop Dose Admin Acetaminophen 1,000 mg 09/30/19 22:00 10/01/19 14:21 Tylenol PO 1,000 mg Q8 [facility] Administration Aspirin 81 mg 09/30/19 17:00 10/01/19 07:53 Aspirin, Baby PO 10/29/19 23:59 81 mg BIDCM [facility] Administration Aspirin 81 mg 10/30/19 08:00 Aspirin, Baby PO DAILY@0800 [facility] Atorvastatin Calcium 40 mg 09/30/19 22:00 09/30/19 21:39 Lipitor PO 40 mg QHS [facility] Administration Baclofen 10 mg 09/30/19 22:00 09/30/19 21:39 Lioresal PO 10 mg QHS [facility] Administration Bisacodyl 10 mg 09/30/19 20:10 Dulcolax PO DAILY PRN Constipation Dorzolamide HCl 1 drop 10/01/19 06:00 10/01/19 06:09 Trusopt OPHTHALMIC 1 drop BID [facility] Administration Furosemide 40 mg 09/30/19 18:00 10/01/19 06:09 Lasix PO 40 mg BID [facility] Administration Gabapentin 300 mg 10/01/19 08:00 10/01/19 07:53 Neurontin PO 300 mg DAILYCM [facility] Administration Metoprolol Succinate 25 mg 10/01/19 06:00 10/01/19 06:09 Toprol Xl (Beta Isidoro) PO 25 mg DAILY [facility] Administration Multi-Ingredient Cream 1 applic 10/01/19 06:00 10/01/19 06:08 Eucerin TOPICAL 1 applicatio 0600,2200 [facility] Administration Protocol Oxycodone HCl 5 - 10 mg 09/30/19 15:52 10/01/19 14:21 Oxyir PO 10 mg Q6H PRN PRN Administration Pain Score 4-10/10 Polyethylene Glycol 17 gm 10/01/19 06:00 10/01/19 06:09 Miralax PO 17 gm DAILY [facility] Administration Senna/Docusate Sodium 2 tablet 09/30/19 18:00 10/01/19 06:09 Senokot-S, Manjula-Colace PO 2 tablet BID [facility] Administration Tuberculin PPD 5 tu 10/08/19 10:00 Tubersol, Aplisol, Ppd ID 10/08/19 10:01 X1 ONE Problem List Debility (Acute) Osteoarthritis of left hip (Chronic) Osteoarthritis of left knee (Chronic) Coronary artery disease (Chronic) Hearing loss (Chronic) Hyperlipidemia (Chronic) Sleep apnea (Chronic) PAOD (peripheral arterial occlusive disease) (Chronic) Edema (Chronic) Diabetic polyneuropathy (Chronic) Glaucoma (Chronic) Vital Signs Temp Pulse Resp BP Pulse Ox 98.1 F 81 16 166/76 H 98 10/01/19 13:45 10/01/19 13:45 10/01/19 13:45 10/01/19 13:45 10/01/19 13:45 Oxygen Delivery Method Room Air Weight: 119.465 kg Body Mass Index (BMI) 35.7 Sodium 140 mmol/L (136-145) 10/01/19 06:26 Potassium 4.0 mmol/L (3.5-5.1) 10/01/19 06:26 Chloride 104 mmol/L (98-107) 10/01/19 06:26 Carbon Dioxide 31.0 mmol/L (21.0-32.0) 10/01/19 06:26 Anion Gap 5 (5-15) 10/01/19 06:26 BUN 33 mg/dL (7-18) H 10/01/19 06:26 Creatinine 0.96 mg/dL (0.70-1.30) 10/01/19 06:26 Est GFR (MDRD) Af Amer 98 mL/min (>60) 10/01/19 06:26 Est GFR (MDRD) Non-Af 81 mL/min (>60) 10/01/19 06:26 BUN/Creatinine Ratio 34.3 RATIO (10-20) H 10/01/19 06:26 Glucose 119 mg/dL (74-106) H 10/01/19 06:26 Assessment/Plan: 1. Pain: Tylenol 1,000mg PO Q8h, Oxycodone 5-10mg PO Q6h PRN Pain 4-10/10. Please continue to monitor for increased/decreased pain, PRN medication usage. 2. CAD/ Fluid Overload: Toprol XL 25mg PO Daily, Lasix 40mg PO BID. Please continue to monitor fluid status, BP, pulse, electrolytes. 3. Hyperlipidemia: Lipitor 40mg PO QHS. Please continue to monitor patient. Consider obtaining a lipid panel at least annually or sooner if clinically indicated. 4. Post-surgical DVT Prophylaxis: Aspirin 81mg PO BID thru 10/29/19 then 81mg PO daily thereafter. Please continue to monitor for S/S bleeding/bruising. 5. Neuropathy/ Back Spasm: Baclofen 10mg PO QHS, Gabapentin 300mg PO Daily. Please continue to monitor for medication effectiveness, dizziness, confusion. 6. Glaucoma: Dorzolamide 1gtt Ophthalmic BID. Please continue to monitor for medication effectiveness, disease progression. Psychotropic Medications: None Unnecessary Medications: None Bowel Regimen: Miralax 17g PO Daily, Senna/Docusate 2 tab PO BID, Bisacodyl 10mg PO Daily PRN. Please continue to monitor for increased/decreased constipation/diarrhea. Date of Note:: 10/01/19 - Provider Comments Provider responsibility: Provider responsible to enter orders to implement recommendations <Ruben Colvin Chi - Last Filed: 10/01/19 15:21> Progress Note - Pharmacy Subjective: [] Objective: Allergies No Known Allergies Allergy (Verified 09/18/19 14:58) Current Medications Generic Name Dose Route Start Last Admin Trade Name Freq PRN Reason Stop Dose Admin Acetaminophen 1,000 mg 09/30/19 22:00 10/01/19 14:21 Tylenol PO 1,000 mg Q8 [facility] Administration Aspirin 81 mg 09/30/19 17:00 10/01/19 07:53 Aspirin, Baby PO 10/29/19 23:59 81 mg BIDCM [facility] Administration Aspirin 81 mg 10/30/19 08:00 Aspirin, Baby PO DAILY@0800 [facility] Atorvastatin Calcium 40 mg 09/30/19 22:00 09/30/19 21:39 Lipitor PO 40 mg QHS [facility] Administration Baclofen 10 mg 09/30/19 22:00 09/30/19 21:39 Lioresal PO 10 mg QHS [facility] Administration Bisacodyl 10 mg 09/30/19 20:10 Dulcolax PO DAILY PRN Constipation Dorzolamide HCl 1 drop 10/01/19 06:00 10/01/19 06:09 Trusopt OPHTHALMIC 1 drop BID [facility] Administration Furosemide 40 mg 09/30/19 18:00 10/01/19 06:09 Lasix PO 40 mg BID [facility] Administration Gabapentin 300 mg 10/01/19 08:00 10/01/19 07:53 Neurontin PO 300 mg DAILYCM [facility] Administration Metoprolol Succinate 25 mg 10/01/19 06:00 10/01/19 06:09 Toprol Xl (Beta Isidoro) PO 25 mg DAILY [facility] Administration Multi-Ingredient Cream 1 applic 10/01/19 06:00 10/01/19 06:08 Eucerin TOPICAL 1 applicatio 0600,2200 [facility] Administration Protocol Oxycodone HCl 5 - 10 mg 09/30/19 15:52 10/01/19 14:21 Oxyir PO 10 mg Q6H PRN PRN Administration Pain Score 4-10/10 Polyethylene Glycol 17 gm 10/01/19 06:00 10/01/19 06:09 Miralax PO 17 gm DAILY [facility] Administration Senna/Docusate Sodium 2 tablet 09/30/19 18:00 10/01/19 06:09 Senokot-S, Manjula-Colace PO 2 tablet BID [facility] Administration Tuberculin PPD 5 tu 10/08/19 10:00 Tubersol, Aplisol, Ppd ID 10/08/19 10:01 X1 ONE Problem List Debility (Acute) Osteoarthritis of left hip (Chronic) Osteoarthritis of left knee (Chronic) Coronary artery disease (Chronic) Hearing loss (Chronic) Hyperlipidemia (Chronic) Sleep apnea (Chronic) PAOD (peripheral arterial occlusive disease) (Chronic) Edema (Chronic) Diabetic polyneuropathy (Chronic) Glaucoma (Chronic) Vital Signs Temp Pulse Resp BP Pulse Ox 98.1 F 81 16 166/76 H 98 10/01/19 13:45 10/01/19 13:45 10/01/19 13:45 10/01/19 13:45 10/01/19 13:45 Oxygen Delivery Method Room Air Weight: 119.465 kg Body Mass Index (BMI) 35.7 Sodium 140 mmol/L (136-145) 10/01/19 06:26 Potassium 4.0 mmol/L (3.5-5.1) 10/01/19 06:26 Chloride 104 mmol/L (98-107) 10/01/19 06:26 Carbon Dioxide 31.0 mmol/L (21.0-32.0) 10/01/19 06:26 Anion Gap 5 (5-15) 10/01/19 06:26 BUN 33 mg/dL (7-18) H 10/01/19 06:26 Creatinine 0.96 mg/dL (0.70-1.30) 10/01/19 06:26 Est GFR (MDRD) Af Amer 98 mL/min (>60) 10/01/19 06:26 Est GFR (MDRD) Non-Af 81 mL/min (>60) 10/01/19 06:26 BUN/Creatinine Ratio 34.3 RATIO (10-20) H 10/01/19 06:26 Glucose 119 mg/dL (74-106) H 10/01/19 06:26 Assessment/Plan: Psychotropic Medications: Unnecessary Medications: Bowel Regimen: - Provider Comments Provider responsibility: Provider responsible to enter orders to implement recommendations Provider Comments to Recommendations by Pharmacy: Agree
[2019-10-01] MEDS: Baclofen 10 MG Tablet PO (21:15)
[2019-10-01] MEDS: Atorvastatin Calcium 40 MG Tablet PO (21:15)
[2019-10-02] MEDS: oxyCODONE 5 MG Tablet PO ×2 (01:09→12:40)
[2019-10-02 06:01] VITALS: BP 164/96; PULSE 74
[2019-10-02] MEDS: Metoprolol(XL)Succ 25 MG Tablet PO (06:01)
[2019-10-02] MEDS: Polyethylene Glycol 3350 17 GM PACKET PO (06:01)
[2019-10-02] MEDS: Senna/Docusate Sodium 1 Tablet 2 TABLET PO ×2 (06:01→19:08)
[2019-10-02] MEDS: Dorzolamide 2% 10ml Bottle 1 DRP OPHTHALMIC ×2 (06:01→19:08)
[2019-10-02] MEDS: Acetaminophen 500 MG Tablet 1000 MG PO ×3 (06:02→21:45)
[2019-10-02] MEDS: Furosemide 40 MG Tablet PO ×2 (06:02→15:51)
[2019-10-02] MEDS: Aspirin 81 MG TAB.CHEW PO ×2 (09:17→15:53)
[2019-10-02] MEDS: Gabapentin 300 MG Capsule PO (09:17)
[2019-10-02 13:43] VITALS: BP 141/79; PULSE 83; RESP 16; TEMP 37; O2SAT 96
[2019-10-02 16:00] VITALS: RESP 18
[2019-10-02] MEDS: Baclofen 10 MG Tablet PO (21:47)
[2019-10-02] MEDS: Atorvastatin Calcium 40 MG Tablet PO (21:47)
[2019-10-03] MEDS: oxyCODONE 5 MG Tablet PO ×3 (01:32→22:56)
[2019-10-03] MEDS: Senna/Docusate Sodium 1 Tablet 2 TABLET PO (06:23)
[2019-10-03] MEDS: Furosemide 40 MG Tablet PO ×2 (06:24→13:00)
[2019-10-03 06:29] VITALS: BP 166/92; PULSE 75
[2019-10-03] MEDS: Metoprolol(XL)Succ 25 MG Tablet PO (06:29)
[2019-10-03] MEDS: Acetaminophen 500 MG Tablet 1000 MG PO ×3 (06:30→21:01)
[2019-10-03] MEDS: Dorzolamide 2% 10ml Bottle 1 DRP OPHTHALMIC ×2 (06:32→21:02)
[2019-10-03] MEDS: Aspirin 81 MG TAB.CHEW PO ×2 (08:09→17:29)
[2019-10-03] MEDS: Gabapentin 300 MG Capsule PO (08:09)
[2019-10-03 13:54] VITALS: BP 149/83; PULSE 81; RESP 16; TEMP 36.6; O2SAT 98
[2019-10-03] MEDS: Atorvastatin Calcium 40 MG Tablet PO (21:01)
[2019-10-03] MEDS: Baclofen 10 MG Tablet PO (21:01)
[2019-10-03 23:00] VITALS: RESP 16
[2019-10-04] MEDS: Acetaminophen 500 MG Tablet 1000 MG PO ×3 (05:01→21:05)
[2019-10-04] MEDS: Dorzolamide 2% 10ml Bottle 1 DRP OPHTHALMIC ×2 (05:02→21:05)
[2019-10-04] MEDS: Furosemide 40 MG Tablet PO ×2 (05:03→13:12)
[2019-10-04 05:05] VITALS: BP 144/77; PULSE 76
[2019-10-04] MEDS: Metoprolol(XL)Succ 25 MG Tablet PO (05:05)
[2019-10-04] MEDS: oxyCODONE 5 MG Tablet PO ×2 (05:09→16:58)
[2019-10-04] MEDS: Gabapentin 300 MG Capsule PO (07:34)
[2019-10-04] MEDS: Aspirin 81 MG TAB.CHEW PO ×2 (07:34→17:00)
[2019-10-04 08:42] VITALS: PULSE 78; RESP 16; O2SAT 95
[2019-10-04 14:24] VITALS: BP 128/71; PULSE 77; RESP 16; TEMP 36.5; O2SAT 93
[2019-10-04] MEDS: Senna/Docusate Sodium 1 Tablet 2 TABLET PO (17:00)
[2019-10-04] MEDS: Baclofen 10 MG Tablet PO (21:05)
[2019-10-04] MEDS: Atorvastatin Calcium 40 MG Tablet PO (21:05)
[2019-10-05] MEDS: oxyCODONE 5 MG Tablet PO ×2 (00:51→21:15)
[2019-10-05 06:03] VITALS: BP 127/84; PULSE 77
[2019-10-05] MEDS: Polyethylene Glycol 3350 17 GM PACKET PO (06:03)
[2019-10-05] MEDS: Metoprolol(XL)Succ 25 MG Tablet PO (06:03)
[2019-10-05] MEDS: Dorzolamide 2% 10ml Bottle 1 DRP OPHTHALMIC ×2 (06:04→21:04)
[2019-10-05] MEDS: Furosemide 40 MG Tablet PO ×2 (06:04→14:35)
[2019-10-05] MEDS: Acetaminophen 500 MG Tablet 1000 MG PO ×3 (06:04→20:57)
[2019-10-05] MEDS: Aspirin 81 MG TAB.CHEW PO ×2 (08:09→16:39)
[2019-10-05] MEDS: Gabapentin 300 MG Capsule PO (08:09)
[2019-10-05 14:25] VITALS: BP 138/75; PULSE 75; RESP 18; TEMP 37; O2SAT 95
[2019-10-05] MEDS: Senna/Docusate Sodium 1 Tablet 2 TABLET PO (16:39)
[2019-10-05] MEDS: Baclofen 10 MG Tablet PO (20:57)
[2019-10-05] MEDS: Atorvastatin Calcium 40 MG Tablet PO (20:57)
[2019-10-05 21:47] VITALS: PULSE 64; RESP 16
[2019-10-06] MEDS: Naproxen 500 MG Tablet PO (00:36)
--- NOTE | 2019-10-06 00:47 | NURSING ---
pt c/o left leg pain, rating it a 6/10, prn naproxyn given
[2019-10-06] MEDS: oxyCODONE 5 MG Tablet PO ×3 (03:19→17:46)
[2019-10-06] MEDS: Senna/Docusate Sodium 1 Tablet 2 TABLET PO ×2 (07:02→17:46)
[2019-10-06] MEDS: Furosemide 40 MG Tablet PO ×2 (07:03→14:48)
[2019-10-06] MEDS: Acetaminophen 500 MG Tablet 1000 MG PO ×3 (07:03→21:14)
[2019-10-06 07:05] VITALS: BP 132/67; PULSE 73
[2019-10-06] MEDS: Metoprolol(XL)Succ 25 MG Tablet PO (07:05)
[2019-10-06] MEDS: Polyethylene Glycol 3350 17 GM PACKET PO (07:10)
[2019-10-06] MEDS: Dorzolamide 2% 10ml Bottle 1 DRP OPHTHALMIC ×2 (07:11→21:13)
[2019-10-06] MEDS: Aspirin 81 MG TAB.CHEW PO ×2 (08:04→17:46)
[2019-10-06] MEDS: Gabapentin 300 MG Capsule PO (08:04)
--- NOTE | 2019-10-06 08:17 | VDLE_ITS ---
Reason For Study: Swelling RIGHT LEFT CFV is compressible, spontaneous, phasic, GSV is normal. competent and demonstrates normal CFV is compressible, spontaneous, phasic, augmentation. competent, and demonstrates normal FV is compressible, spontaneous, phasic, augmentation. competent and demonstrates normal FV is compressible, spontaneous, phasic, augmentation. competent and demonstrates normal POP V is compressible, spontaneous, phasic, augmentation. competent and demonstrates normal POP V is compressible, spontaneous, phasic, augmentation. competent and demonstrates normal T/P Trunk is compressible. augmentation. PTV is compressible. T/P Trunk is compressible. RT PerV is compressible. PTV is compressible. GSV previously harvested. LT PerV is compressible. Nonvascularized structure noted in the right Large nonvascularized structure noted in the popliteal space measuring approximently 1.98 left popliteal space measuring approximently x 1.25 x 4.48 cm. 3.21 x 4.67 x 6.83 cm. Procedure Exam performed portable in patient room. A preliminary report was called and/or faxed to Jesica SWARTZ and TCU. Interpretation Summary Deep veins of the lower extremities are bilaterally patent and compressible segmentally. There is no evidence of deep vein thrombosis on either side. Valvular competence appears intact within the proximal deep venous systems bilaterally. The right great saphenous vein is absent, having been previously harvested. The left great saphenous vein appears patent and compressible segmentally. A non-vascular, hypoechoic structure is noted in each popliteal space bilaterally, with dimensions as documented above. These probably represent popliteal cysts. Clinical correlation is advised. Ordering Physician: Ruben Colvin Referring Physician: Ruben Colvin Chi Performed By: Paula Barker RVT
[2019-10-06 14:49] VITALS: BP 135/74; PULSE 79; RESP 18; TEMP 36.7; O2SAT 98
--- NOTE | 2019-10-06 17:50 | NURSING ---
L lower leg, swollen, tight. dark area remains circled. L knee circ 41.5 cm, L calf circ 42cm.
[2019-10-06 21:10] VITALS: PULSE 73; RESP 16; O2SAT 99
[2019-10-06] MEDS: Atorvastatin Calcium 40 MG Tablet PO (21:13)
[2019-10-06] MEDS: Baclofen 10 MG Tablet PO (21:13)
[2019-10-07] MEDS: oxyCODONE 5 MG Tablet PO ×2 (01:24→22:03)
[2019-10-07] MEDS: Polyethylene Glycol 3350 17 GM PACKET PO (05:35)
[2019-10-07] MEDS: Acetaminophen 500 MG Tablet 1000 MG PO ×3 (05:35→21:55)
[2019-10-07] MEDS: Senna/Docusate Sodium 1 Tablet 2 TABLET PO (05:35)
[2019-10-07] MEDS: Furosemide 40 MG Tablet PO ×2 (05:35→13:55)
[2019-10-07 05:42] VITALS: BP 161/85; PULSE 69
[2019-10-07] MEDS: Metoprolol(XL)Succ 25 MG Tablet PO (05:42)
[2019-10-07] MEDS: Dorzolamide 2% 10ml Bottle 1 DRP OPHTHALMIC ×2 (05:43→21:54)
[2019-10-07] MEDS: Aspirin 81 MG TAB.CHEW PO ×2 (07:55→17:22)
[2019-10-07] MEDS: Gabapentin 300 MG Capsule PO (07:55)
--- NOTE | 2019-10-07 09:55 | NURSING ---
Pt continues to have LLE non pitting edema. Left knee circumference is 40.5, left calf circumference is 42.5 at this time. Discoloration still within previous margins marked. Pt does complain of mild tenderness when leg is touched. peripheral pulses palpable, no new concerns regarding area reported by patient.
--- NOTE | 2019-10-07 10:21 | CASEMGMT ---
Social work IDT met with pt and pt dtr via conference call for care plan meeting. Pt is mod I with all ADLS and is walking 276ft with walker at mod I. Pt is able to do 8 steps at SBA with 2 HR and will work on completing 14 steps on this date d/t steps in home. Pt is on a 2200 calorie, cardiac diet to reduce swelling in legs. Explained insurance to pt NRD was 10/05, insurance most likely to cut and DC would be no sooner than 10/09- pt and dtr agreeable. Pt agreeable to [facility], pt given list of options, requesting [facility]-PT/OT. Educated pt to difference between PT and OT and explained [facility] would help with leg wraps to reduce swelling, but that pt should maintain low sodium diet- pt agreeable. Essie Marquez, social work wireless internet installer Yesica Garza, PIZZA DRIVER DAIRY SPECIALIST
--- NOTE | 2019-10-07 11:27 | CASEMGMT ---
Social Work Insurance issued LCD 10/08, DC home 10/09. Pt requesting [facility] PT/OT/SN - referral made. Requesting [facility]WW - referral made to [facility]. Plan: DC home 10/09 with [facility] PT/OT/[facility] - FWW. NASIMA Hernandez MANAGER INTEL
[2019-10-07 15:23] VITALS: BP 122/63; PULSE 71; RESP 16; TEMP 36.4; O2SAT 97
--- NOTE | 2019-10-07 16:20 | CASEMGMT ---
Social Work Reviewed and agreed with social work senior internal auditor documentation on this date. Yesica Garza, SPINNING BATH PATROLLER BEHAVIORAL HEALTH CLINICIAN
--- NOTE | 2019-10-07 18:58 | PCM.DC ---
- Discharge Diagnoses Current Active Problems: Current Active and Chronic Problems Debility (Acute) Osteoarthritis of left hip (Chronic) Osteoarthritis of left knee (Chronic) Coronary artery disease (Chronic) Hearing loss (Chronic) Hyperlipidemia (Chronic) Sleep apnea (Chronic) PAOD (peripheral arterial occlusive disease) (Chronic) Edema (Chronic) Diabetic polyneuropathy (Chronic) Glaucoma (Chronic) You will use the following diet at home:: No restrictions, Regular Your food should be the consistency of: Regular Your liquids should be the consistency of: Regular/Thin Discharge Activity: Return to Normal Activity, May Shower, Use Walker Weight Bearing Status: Weight bearing as tolerated Call your doctor if you observe: Fever of 101 or Higher, Inability to urinate, Inability to have a bowel movement, Shortness of breath, Chest pain, Uncontrolled pain Allergies/Adverse Reactions: Allergies No Known Allergies Allergy (Verified 09/18/19 14:58) Medications to take at Discharge Gabapentin [Neurontin] 300 mg PO DAILY 05/11/15 Atorvastatin Calcium [Lipitor] 40 mg PO QHS 06/11/19 Baclofen 10 mg PO QHS 06/11/19 Dorzolamide HCl/Pf [Dorzolamide 2% Eye Drop] 1 drp OP QHS 06/11/19 Furosemide [Lasix] 40 mg PO BID 06/11/19 Metoprolol Succinate [Toprol Xl] 25 mg PO DAILY 06/11/19 Acetaminophen [Tylenol] 1,000 mg PO Q8 09/30/19 Aspirin [Aspirin, Baby] 81 mg PO BID 09/30/19 Mineral Oil/Petrolatum,White [Eucerin] 1 applic TOPICAL 0600,2200 jar 10/07/19 Naproxen [Naprosyn] 500 mg PO BID PRN PRN tablet 10/07/19 Oxycodone [Oxyir] 5 - 10 mg PO Q6H PRN PRN 7 Days #48 tab 10/07/19 Polyethylene Glycol 3350 [Miralax] 17 gm PO DAILY #30 packet 10/07/19 Senna/Docusate Sodium [Senokot-S] 2 tab PO BID #120 tab 10/07/19 The following prescriptions were given: Polyethylene Glycol 3350 [Miralax] 17 gm PO DAILY #30 packet Transmission Status: Pending to [facility] Oxycodone [Oxyir] 5 - 10 mg PO Q6H PRN PRN 7 Days #48 tab PRN Reason: Pain Score 4-10/10 Transmission Status: Sent to [facility] Senna/Docusate Sodium [Senokot-S] 2 tab PO BID #120 tab Transmission Status: Pending to [facility] Primary Care Physician: Ruben Colvin Chi, MD [Primary Care Provider] - Please follow up with your Primary Care Physician in: 1 week. Test Results: Test results from this visit will be discussed in further detail at your follow-up appointment, if applicable. Please Follow Up With: Zan Morgan PA-C When: 2 weeks. Proposed Discharge Date: 10/10/19
--- NOTE | 2019-10-07 18:59 | PCM.DC.SUM ---
Discharge Date and Diagnosis - Problem List Patient Problems: Active and Suspected Problems Debility (Acute) Date of Admission: 09/30/19 Date of Discharge: 10/10/19 - Primary Discharge Diagnosis Active and Suspected Problems Debility (Acute) - Secondary Discharge Diagnosis Chronic Problems Osteoarthritis of left hip (Chronic) Osteoarthritis of left knee (Chronic) Coronary artery disease (Chronic) Hearing loss (Chronic) Hyperlipidemia (Chronic) Sleep apnea (Chronic) PAOD (peripheral arterial occlusive disease) (Chronic) Edema (Chronic) Diabetic polyneuropathy (Chronic) Glaucoma (Chronic) Coronary artery disease status post CABG (Chronic) Acquired lactose intolerance (Chronic) Hypertension (Chronic) M?ni?re's disease (Chronic) Severe aortic stenosis (Chronic) Benign essential hypertension (Chronic) Hospital Course and Treatment Imaging Results: 10/01/19 11:36 Diet: Cardiac: Calorie-Controlled Is pt able to select menu?: Yes How many daily calories?: 2200 calorie Operations: None Procedures: None Summary of Care Provided: The patient is a 74 year old Male with below past medical history hospitalized for left total hip replacement 09/28/[address] Vallejo, admitted to TCU with debility, here for rehabilitation, strengthening, prior to discharge home alone. Resident has hematoma left lateral lower extremity, no history of trauma, Doppler ultrasound bilateral lower extremity NEGATIVE DVT. Aspirin 81MG twice daily thru 10/29/2019, then Aspirin 81MG daily for DVT prophylaxis. Discharge home alone, [facility] PT/OT/SN, Hank Front Wheeled Walker. Patient Problems: Active and Suspected Problems Debility (Acute) - Physical Exam Vitals/I&O's: Vital Signs Temp Pulse Resp BP Pulse Ox 97.5 F L 71 16 122/63 H 97 10/07/19 15:23 10/07/19 15:23 10/07/19 15:23 10/07/19 15:23 10/07/19 15:23 Oxygen Delivery Method Room Air Weight: 118.841 kg Body Mass Index (BMI) 35.7 Intake and Output for Last 24 Hours 10/05/19 10/06/19 10/07/19 23:59 23:59 23:59 Intake Total 840 / 840 840 / 840 1080 / 1080 Balance 840 / 840 840 / 840 1080 / 1080 Current Medications Acetaminophen (Tylenol) 1,000 mg PO Q8 [facility] Last Admin: 10/07/19 13:55 Dose: 1,000 mg Documented by: [facility] Stop: 10/29/19 23:59 Last Admin: 10/07/19 17:22 Dose: 81 mg Documented by: Aspirin (Aspirin, Baby) 81 mg PO DAILY@0800 [facility] Atorvastatin Calcium (Lipitor) 40 mg PO QHS [facility] Last Admin: 10/06/19 21:13 Dose: 40 mg Documented by: Baclofen (Lioresal) 10 mg PO QHS [facility] Last Admin: 10/06/19 21:13 Dose: 10 mg Documented by: Bisacodyl (Dulcolax) 10 mg PO DAILY PRN PRN Reason: Constipation Dorzolamide HCl (Trusopt) 1 drop OPHTHALMIC 0600,2200 [facility] Last Admin: 10/07/19 05:43 Dose: 1 drop Documented by: Furosemide (Lasix) 40 mg PO 0600,1400 [facility] Last Admin: 10/07/19 13:55 Dose: 40 mg Documented by: [facility] Last Admin: 10/07/19 07:55 Dose: 300 mg Documented by: Metoprolol Succinate (Toprol Xl (Beta Isidoro)) 25 mg PO DAILY [facility] Last Admin: 10/07/19 05:42 Dose: 25 mg Documented by: Multi-Ingredient Cream (Eucerin) 1 applic TOPICAL 0600,2200 [facility]; Protocol Last Admin: 10/07/19 05:34 Dose: 1 applicatio Documented by: Naproxen (Naprosyn) 500 mg PO BID PRN PRN PRN Reason: Pain Score 1-3/10 Last Admin: 10/06/19 00:36 Dose: 500 mg Documented by: Oxycodone HCl (Oxyir) 5 - 10 mg PO Q6H PRN PRN PRN Reason: Pain Score 4-10/10 Last Admin: 10/07/19 01:24 Dose: 10 mg Documented by: Polyethylene Glycol (Miralax) 17 gm PO DAILY [facility] Last Admin: 10/07/19 05:35 Dose: 17 gm Documented by: Senna/Docusate Sodium (Senokot-S, Manjula-Colace) 2 tablet PO BID [facility] Last Admin: 10/07/19 17:41 Dose: Not Given Documented by: Tuberculin PPD (Tubersol, Aplisol, Ppd) 5 tu ID [id number] Stop: 10/08/19 10:01 Discharge Diet: No Restrictions Discharge Activity: Return to Normal Activity, May Shower, Use Walker Weight Bearing Status: Weight bearing as tolerated Call your doctor if you observe: Fever of 101 or Higher, Inability to urinate, Inability to have a bowel movement, Shortness of breath, Chest pain, Uncontrolled pain Home Medications: Medications to take at Discharge Gabapentin [Neurontin] 300 mg PO DAILY 05/11/15 Atorvastatin Calcium [Lipitor] 40 mg PO QHS 06/11/19 Baclofen 10 mg PO QHS 06/11/19 Dorzolamide HCl/Pf [Dorzolamide 2% Eye Drop] 1 drp OP QHS 06/11/19 Furosemide [Lasix] 40 mg PO BID 06/11/19 Metoprolol Succinate [Toprol Xl] 25 mg PO DAILY 06/11/19 Acetaminophen [Tylenol] 1,000 mg PO Q8 09/30/19 Aspirin [Aspirin, Baby] 81 mg PO BID 09/30/19 Mineral Oil/Petrolatum,White [Eucerin] 1 applic TOPICAL 0600,2200 jar 10/07/19 Naproxen [Naprosyn] 500 mg PO BID PRN PRN tablet 10/07/19 Oxycodone [Oxyir] 5 - 10 mg PO Q6H PRN PRN 7 Days #48 tab 10/07/19 Polyethylene Glycol 3350 [Miralax] 17 gm PO DAILY #30 packet 10/07/19 Senna/Docusate Sodium [Senokot-S] 2 tab PO BID #120 tab 10/07/19 Following Prescrptions Were Given to Patient: Polyethylene Glycol 3350 [Miralax] 17 gm PO DAILY #30 packet Transmission Status: Pending to [facility] Oxycodone [Oxyir] 5 - 10 mg PO Q6H PRN PRN 7 Days #48 tab PRN Reason: Pain Score 4-10/10 Transmission Status: Sent to [facility] Senna/Docusate Sodium [Senokot-S] 2 tab PO BID #120 tab Transmission Status: Pending to [facility] Primary Care Physician: Ruben Colvin Chi, MD [Primary Care Provider] - Please follow up with your Primary Care Physician in: 1 week. Please Follow Up With: Zan Morgan PA-C When: 2 weeks. Disposition: Home with Home Health Minutes spent on discharge:: 35 Patient Condition:: Stable Medical Necessity - Tobacco Use Smoking Status: Never smoker Tobacco Use: Non-smoker Meaningful Use Info Meaningful Use Diagnoses (Choose all that apply): None applicable
[2019-10-07] MEDS: Baclofen 10 MG Tablet PO (21:53)
[2019-10-07] MEDS: Atorvastatin Calcium 40 MG Tablet PO (21:54)
[2019-10-08] MEDS: Furosemide 40 MG Tablet PO ×2 (05:43→13:35)
[2019-10-08] MEDS: Acetaminophen 500 MG Tablet 1000 MG PO ×3 (05:43→20:48)
[2019-10-08] MEDS: Dorzolamide 2% 10ml Bottle 1 DRP OPHTHALMIC ×2 (05:44→20:48)
[2019-10-08 05:46] VITALS: BP 173/93; PULSE 80
[2019-10-08] MEDS: Metoprolol(XL)Succ 25 MG Tablet PO (05:46)
[2019-10-08 06:26] LABS: Absolute Lymphocyte Count 2.65 X10^3/uL (0.83-4.51); Basophil# 0.02 X10^3/uL; Basophil% 0.2 % (0-1); Eosinophil# 0.34 X10^3/uL; Eosinophils% 3.5 % (0-5); Hematocrit 37.8 % (40-54); Hemoglobin 11.9 g/dL (13.0-16.5); Lymphocyte # 2.65 X10^3/ul (4.0); Mean Corp Hgb Conc 31.5 g/dL (32-36); Mean Corpuscular Volume 85.7 fL (80-94); Mean Platelet Vol. 9.7 fl (6.2-12.0); Monocyte# 0.73 X10^3/uL; Monocyte% 7.4 % (0-10); NRBC Flagged by Analyzer 0 % (0-5); Neutrophil # 5.97 X10^3/uL (2.7-7.7); Neutrophil % 60.9 % (47-70); Platelet Count 266 K/mm3 (150-450); RBC Distribution Width CV 13.6 % (11.6-14.6); RBC Distribution Width SD 42.3 fl (35.1-43.9); Red Blood Count 4.41 M/mm3 (4.6-6.2); White Blood Count 9.8 K/mm3 (4.4-11.0)
[2019-10-08 06:46] LABS: Anion Gap 4 (5-15); BUN 25 mg/dL (7-18); BUN/Creat Ratio 26.3 RATIO (10-20); Calcium,Total 9.4 mg/dL (8.5-10.1); Chloride 104 mmol/L (98-107); Creatinine, Serum 0.95 mg/dL (0.70-1.30); EST Glomerular Filtration Rate 82 mL/min (>60); Est Glom Filt Rate - Afr Amer 99 mL/min (>60); Estimated Creatinine Clearance 73.74 ml/min; Glucose 97 mg/dL (74-106); Potassium 3.9 mmol/L (3.5-5.1); Sodium Level 137 mmol/L (136-145)
[2019-10-08] MEDS: oxyCODONE 5 MG Tablet PO ×3 (07:41→20:48)
[2019-10-08] MEDS: Aspirin 81 MG TAB.CHEW PO ×2 (07:43→17:04)
[2019-10-08] MEDS: Gabapentin 300 MG Capsule PO (07:43)
[2019-10-08] MEDS: Tuberculin,Purif.prot.deriv. 50 TU/ML Vial 5 ML ID (11:00)
--- NOTE | 2019-10-08 11:08 | NURSING ---
Pt continues to have non pitting edema in left calf but +2 edema in the left ankle and foot. Left knee circumference is 40.5cm, left calf circumference is 41.5cm at this time. Discoloration still within previous margins marked. Pt does complain of pain rated as a 8/10 when leg is touched. peripheral pulses palpable.
--- NOTE | 2019-10-08 11:14 | NURSING ---
Pt daughter called this nurse and expressed concerns regarding pt's LLE including the pain he is having and his f/u appointment with . Concerns reported to RN
[2019-10-08 13:58] VITALS: BP 128/54; PULSE 76; RESP 16; TEMP 36.7; O2SAT 96
--- NOTE | 2019-10-08 15:41 | CASEMGMT ---
Social Work Spoke with pt and dtr, inquiring whether pt could stay on TCU until f/u appt 10/12. Informed dtr and pt that insurance last covered day would be 10/09 and to stay until 10/12 would be self pay, $660/day. Pt choosing not to stay and will DC on 10/09. Spoke with dtr, dtr to call physician for f/u appt to potentially get appt rescheduled for 10/08 so pt could have appt before DC. Dtr to call SW/PARK back. Dtr also requesting TCU physician talk with pt on this date, in the evening. Notified physician to do so. Essie Marquez, social work automotive internet sales consultant Yesica Garza, SPEECH PATHOLOGY TEACHER ASSISTANT ANALYST
--- NOTE | 2019-10-08 16:14 | CASEMGMT ---
Social Work Reviewed and agreed with social work [employer] compliance internship documentation on this date. Yesica Garza, TUCK POINTER HELPER TANKROOM TENDER
[2019-10-08] MEDS: Senna/Docusate Sodium 1 Tablet 2 TABLET PO (17:04)
[2019-10-08 18:54] LABS: Uric Acid 5.6 mg/dL (3.5-7.2)
--- NOTE | 2019-10-08 18:55 | NURSING ---
Beatrice to come out tomorrow per Dr. Weinberg's office.
[2019-10-08] MEDS: Atorvastatin Calcium 40 MG Tablet PO (20:49)
[2019-10-08] MEDS: Baclofen 10 MG Tablet PO (20:50)
[2019-10-09] MEDS: oxyCODONE 5 MG Tablet PO ×3 (04:07→23:08)
[2019-10-09] MEDS: Dorzolamide 2% 10ml Bottle 1 DRP OPHTHALMIC ×2 (05:57→20:57)
[2019-10-09] MEDS: Acetaminophen 500 MG Tablet 1000 MG PO ×3 (05:57→20:58)
[2019-10-09 05:58] VITALS: BP 128/71; PULSE 68
[2019-10-09] MEDS: Metoprolol(XL)Succ 25 MG Tablet PO (05:58)
[2019-10-09] MEDS: Polyethylene Glycol 3350 17 GM PACKET PO (05:58)
[2019-10-09] MEDS: Senna/Docusate Sodium 1 Tablet 2 TABLET PO (05:58)
[2019-10-09] MEDS: Furosemide 40 MG Tablet PO ×2 (05:59→14:20)
[2019-10-09] MEDS: Gabapentin 300 MG Capsule PO (08:14)
[2019-10-09] MEDS: Aspirin 81 MG TAB.CHEW PO ×2 (08:15→17:06)
[2019-10-09] MEDS: Naproxen 500 MG Tablet PO (08:15)
[2019-10-09 13:30] VITALS: BP 145/80; PULSE 65; RESP 18; TEMP 35.9; O2SAT 95
[2019-10-09] MEDS: Baclofen 10 MG Tablet PO (20:57)
[2019-10-09] MEDS: Atorvastatin Calcium 40 MG Tablet PO (20:58)
[2019-10-10] MEDS: oxyCODONE 5 MG Tablet PO (06:26)
[2019-10-10] MEDS: Polyethylene Glycol 3350 17 GM PACKET PO (06:26)
[2019-10-10] MEDS: Naproxen 500 MG Tablet PO (06:26)
[2019-10-10 06:27] VITALS: BP 147/73; PULSE 65
[2019-10-10] MEDS: Acetaminophen 500 MG Tablet 1000 MG PO ×2 (06:27→13:32)
[2019-10-10] MEDS: Senna/Docusate Sodium 1 Tablet 2 TABLET PO (06:27)
[2019-10-10] MEDS: Furosemide 40 MG Tablet PO (06:27)
[2019-10-10] MEDS: Metoprolol(XL)Succ 25 MG Tablet PO (06:27)
[2019-10-10] MEDS: Dorzolamide 2% 10ml Bottle 1 DRP OPHTHALMIC (06:29)
[2019-10-10 06:31] VITALS: PULSE 65; O2SAT 97
[2019-10-10] MEDS: Gabapentin 300 MG Capsule PO (08:00)
[2019-10-10] MEDS: Aspirin 81 MG TAB.CHEW PO (08:01)
[2019-10-10 13:42] VITALS: BP 135/78; PULSE 70; RESP 16; TEMP 36.4; O2SAT 96
--- NOTE | 2019-10-12 16:52 | CASEMGMT ---
Social Work Reviewed and agreed with social work intelligence intern documentation on this date. Yesica Garza, MICROBIAL SPECIALIST TRANSPORTATION PLANNING TECHNICIAN
== END 2019-10-10 13:45 | disposition home health service (06) | DRG 561 ==
PROVIDERS: Admitting Provider Family Medicine Geriatric Medicine; PCP Family Medicine Geriatric Medicine; Visit Provider Family Medicine Geriatric Medicine
DX: Z47.1 Aftercare following joint replacement surgery (principal); Z96.642 Presence of left artificial hip joint; I25.10 Atherosclerotic heart disease of native coronary artery without angina pectoris; E78.5 Hyperlipidemia, unspecified; E11.51 Type 2 diabetes mellitus with diabetic peripheral angiopathy without gangrene; E11.42 Type 2 diabetes mellitus with diabetic polyneuropathy; G47.30 Sleep apnea, unspecified; I10 Essential (primary) hypertension; Z95.2 Presence of prosthetic heart valve; Z95.1 Presence of aortocoronary bypass graft; H40.9 Unspecified glaucoma; Z23 Encounter for immunization
CPT/HCPCS: 36415; 80048; 84550; 85025; 90732; 93970; 97110; 97116; 97162; 97166; 97530; 97535; 97802; G0009

== ENCOUNTER → 2020-01-21 13:27 | Outpatient (CLI) | payer MEDICARE, SELFPAY ==
[2020-01-21 16:09] LABS: Basophil# 0.04 X10^3/uL; Basophil% 0.5 % (0-1); Eosinophil# 0.25 X10^3/uL; Eosinophils% 2.8 % (0-5); Hematocrit 45.6 % (40-54); Lymphocyte % 29.4 % (19-41); Mean Corp Hgb Conc 30.7 g/dL (32-36); Mean Corpuscular Hgb 26.2 pg (27.0-32.0); Mean Corpuscular Volume 85.2 fL (80-94); Mean Platelet Vol. 11.3 fl (6.2-12.0); Monocyte# 0.97 X10^3/uL; NRBC Flagged by Analyzer 0 % (0-5); Neutrophil # 4.96 X10^3/uL (2.7-7.7); Platelet Count 188 K/mm3 (150-450); RBC Distribution Width CV 14.7 % (11.6-14.6); RBC Distribution Width SD 44.9 fl (35.1-43.9); Red Blood Count 5.35 M/mm3 (4.6-6.2); White Blood Count 8.9 K/mm3 (4.4-11.0)
[2020-01-21 16:45] LABS: AST(SGOT) 21 U/L (15-37); Alanine Aminotransfer ALT/SGPT 32 U/L (16-61); Albumin, Serum 3.5 g/dL (3.2-5.0); Alkaline Phosphatase 82 U/L (45-117); Anion Gap 5 (5-15); BUN 20 mg/dL (7-18); BUN/Creat Ratio 18.9 RATIO (10-20); Calcium,Total 9.1 mg/dL (8.5-10.1); Chloride 103 mmol/L (98-107); Cholesterol 145 mg/dL (200); Creatinine, Serum 1.06 mg/dL (0.70-1.30); EST Glomerular Filtration Rate 72 mL/min (>60); Est Glom Filt Rate - Afr Amer 87 mL/min (>60); Globulin 3.5 g/dL (2.2-4.2); Glucose 96 mg/dL (74-106); High Density Lipoprotein 41 mg/dL; Potassium 4.5 mmol/L (3.5-5.1); Sodium Level 141 mmol/L (136-145); Thyroid Stim Hormone (TSH) 1.24 uIU/mL (0.358-3.74); Triglycerides 201 mg/dL; Very Low Density Lipoprotein 40 mg/dL (5-40)
[2020-01-21 16:48] LABS: Vitamin D,25 Hydroxy 41.6 ng/mL
== END ==
PROVIDERS: PCP Family Medicine Geriatric Medicine; Visit Provider Family Medicine Geriatric Medicine
DX: E11.65 Type 2 diabetes mellitus with hyperglycemia (principal); E55.9 Vitamin D deficiency, unspecified; E78.5 Hyperlipidemia, unspecified; I10 Essential (primary) hypertension
CPT/HCPCS: 36415; 80053; 80061; 82306; 84443; 85025

== ENCOUNTER → 2020-01-29 14:20 | Outpatient (CLI) | payer MEDICARE, SELFPAY ==
--- NOTE | 2020-01-29 14:25 | CT_ITS ---
STUDY: CT SCAN LOWER EXTREMITY LEFT REASON FOR EXAM: Male, 75 years old. [facility] KNEE RADIATION DOSAGE (If Supplied By Facility): CTDIvol = ( 18.75 ) mGy, DLP = ( 1229.12 ) mGycm. Individualized dose optimization techniques were used for this CT.? TECHNIQUE: Multiple axial tomographic images of the left hip joint, knee joint and ankle joint were obtained. Coronal and sagittal reconstruction was obtained as well. COMPARISON: None. FINDINGS: The patient is status post left hip replacement. There is good alignment. No acute abnormality is seen. Marked degree of joint space narrowing involving the medial compartment of the knee joint. There is evidence of a bone spurs along the medial and lateral femoral condyles as well as anteriorly at the patellofemoral joint. Subchondral cysts are seen in the central portion of the tibial epiphysis. There is evidence of chondrocalcinosis of the lateral meniscus. Marked degree of osteoarthritis involving the patellofemoral joint. Small to moderate-sized joint effusion. The ankle joint is unremarkable. There is evidence of a 6.6 cm x 2.8 cm cystic structure in the popliteal fossa most likely representing a popliteal cyst. The ankle joint is unremarkable. CT/Extremity Lower without Contra IMPRESSION: Degenerative changes of the knee joint as described. Popliteal cyst. Electronically Signed: Anil Phillips, at 15:20 EDT , Service support ,
== END ==
PROVIDERS: PCP Family Medicine Geriatric Medicine; Referring Provider Orthopaedic Surgery; Visit Provider Orthopaedic Surgery
DX: M21.162 Varus deformity, not elsewhere classified, left knee (principal)
CPT/HCPCS: 73700

== ENCOUNTER → 2020-02-23 12:12 | Outpatient (CLI) | payer MEDICARE, SELFPAY ==
--- NOTE | 2020-02-23 12:15 | RAD_ITS ---
STUDY: X-RAY - LEFT SHOULDER REASON FOR EXAM: Male, 75 years old. Pt states constant pain x 1 month, doctor checking for rotator cuff TECHNIQUE: 5 view(s) of the shoulder. COMPARISON: None. FINDINGS: There is mild degenerative arthrosis of the glenohumeral articulation. There is degenerative arthrosis of the acromioclavicular joint without inferior osseous spur formation. Normal acromion. There is demineralization of the humerus and visualized osseous structures. The soft tissue structures are unremarkable. Normal visualized pulmonary apex. RAD/Shoulder min 2 Views IMPRESSION: Degenerative arthrosis Electronically Signed: Amilcar Philippe MD at 17:27 EDT , Service support ,
--- NOTE | 2020-02-23 12:15 | RAD_ITS ---
STUDY: X-RAY - RIGHT SHOULDER REASON FOR EXAM: Male, 75 years old. pt states constant pain x 1 month, doctor checking for rotator cuff TECHNIQUE: 4 view(s) of the shoulder. COMPARISON: None. FINDINGS: There is mild degenerative arthrosis of the glenohumeral articulation. There is degenerative arthrosis of the acromioclavicular joint without inferior osseous spur formation. Normal acromion. There is demineralization of the humerus and visualized osseous structures. The soft tissue structures are unremarkable. Normal visualized pulmonary apex. RAD/Shoulder min 2 Views IMPRESSION: Degenerative arthrosis Electronically Signed: Amilcar Philippe MD at 13:32 EDT , Service support ,
--- NOTE | 2020-02-23 12:16 | RAD_ITS ---
STUDY: X-RAY - PELVIS AND RIGHT HIP REASON FOR EXAM: Male, 75 years old. pt states constant pain mostly at night, replacement 6 years ago TECHNIQUE: 4 views of the pelvis and hip. COMPARISON: None. FINDINGS: There is a non-specific bowel gas pattern. Normal visualized soft tissue structures. There is narrowing with cortical sclerosis and osteophyte formation of the sacroiliac joint consistent with degenerative osteoarthritic changes. Normal bilateral superior and inferior pubic rami. Normal pubic symphysis. Normal bilateral ischial tuberosities. Right hip has been previously replaced. Components demonstrate anatomic alignment. No plain film evidence of hardware application, failure, or acute traumatic abnormality. RAD/HIP, UNI W/ Pelvis 2-3 Views IMPRESSION: Age consistent degenerative changes, replaced right hip joint free of complication Electronically Signed: Amilcar Philippe MD at 17:27 EDT , Service support ,
--- NOTE | 2020-02-23 12:22 | RAD_ITS ---
STUDY: X-RAY - LUMBAR SPINE REASON FOR EXAM: Male, 75 years old. pt states no pain, doctor checking for sciatica TECHNIQUE: 3 view(s) of the lumbar spine were obtained. COMPARISON: None FINDINGS: Normal lumbar lordosis. There is no substantial scoliosis. There is a normal alignment of the vertebrae. There is diffuse demineralization with multi-level endplate spondylosis. There is multi-level degenerative disc disease with multi-level disc space narrowing. There is no demonstrated fracture. There is atherosclerotic calcification of the abdominal aorta without a demonstrated aneurysm. RAD/Lumbar Spine 2 or 3 Views IMPRESSION: Multilevel degenerative changes with multiple levels of vacuum disc phenomenon. No demonstrated fracture or suspicious osseous lesion Electronically Signed: Amilcar Philippe MD at 17:25 EDT , Service support ,
== END ==
PROVIDERS: PCP Family Medicine Geriatric Medicine; Visit Provider Family Medicine Geriatric Medicine
DX: M54.30 Sciatica, unspecified side (principal); M25.519 Pain in unspecified shoulder
CPT/HCPCS: 72100; 73030; 73502

== ENCOUNTER → 2020-04-25 13:30 | Outpatient (CLI) | payer MEDICARE, SELFPAY ==
[2020-04-25 17:13] LABS: Absolute Lymphocyte Count 2.02 X10^3/uL (0.83-4.51); Absolute Neutrophil Count 4.2 X10^3/uL (2.0-7.7); Basophil# 0.02 X10^3/uL; Basophil% 0.3 % (0-1); Eosinophil# 0.16 X10^3/uL; Eosinophils% 2.2 % (0-5); Hematocrit 44.3 % (40-54); Hemoglobin 14.4 g/dL (13.0-16.5); Lymphocyte # 2.02 X10^3/ul (4.0); Lymphocyte % 27.9 % (19-41); Mean Corp Hgb Conc 32.5 g/dL (32-36); Mean Corpuscular Hgb 26.3 pg (27.0-32.0); Mean Corpuscular Volume 80.8 fL (80-94); Mean Platelet Vol. 11.9 fl (6.2-12.0); Monocyte# 0.79 X10^3/uL; Monocyte% 10.9 % (0-10); NRBC Flagged by Analyzer 0.3 % (0-5); Neutrophil # 4.22 X10^3/uL (2.7-7.7); Neutrophil % 58.4 % (47-70); Platelet Count 134 K/mm3 (150-450); RBC Distribution Width SD 41.3 fl (35.1-43.9); Red Blood Count 5.48 M/mm3 (4.6-6.2); White Blood Count 7.2 K/mm3 (4.4-11.0)
[2020-04-25 17:31] LABS: ALB/GLOB Ratio 0.8 RATIO (0.9-2.4); AST(SGOT) 54 U/L (15-37); Alanine Aminotransfer ALT/SGPT 59 U/L (16-61); Albumin, Serum 3.1 g/dL (3.2-5.0); Alkaline Phosphatase 87 U/L (45-117); Anion Gap 5 (5-15); BUN 27 mg/dL (7-18); BUN/Creat Ratio 20.9 RATIO (10-20); Calcium,Total 9.5 mg/dL (8.5-10.1); Chloride 101 mmol/L (98-107); Cholesterol 152 mg/dL (200); Creatinine, Serum 1.29 mg/dL (0.70-1.30); EST Glomerular Filtration Rate 58 mL/min (>60); Est Glom Filt Rate - Afr Amer 70 mL/min (>60); Globulin 4.1 g/dL (2.2-4.2); Glucose 101 mg/dL (74-106); High Density Lipoprotein 47 mg/dL; Potassium 4.3 mmol/L (3.5-5.1); Protein, Total 7.2 g/dL (6.4-8.2); Sodium Level 133 mmol/L (136-145); Triglycerides 122 mg/dL; Very Low Density Lipoprotein 24 mg/dL (5-40)
[2020-04-27 08:11] LABS: Vitamin D,25 Hydroxy 29.6 ng/mL
== END ==
PROVIDERS: PCP Family Medicine Geriatric Medicine; Visit Provider Family Medicine Geriatric Medicine
DX: E55.9 Vitamin D deficiency, unspecified (principal); E78.5 Hyperlipidemia, unspecified; I10 Essential (primary) hypertension
CPT/HCPCS: 36415; 80053; 80061; 82306; 84443; 85025

== ENCOUNTER → 2020-05-03 14:46 | Outpatient (CLI) | payer MEDICARE, SELFPAY ==
--- NOTE | 2020-05-03 14:48 | VDUE_ITS ---
Reason For Study: Localized edema Left Proximal Left jugular vein is spontaneous, widely patent, phasic, with no intraluminal echogenicity noted. Left subclavian vein is spontaneous, widely patent, phasic, with no intraluminal echogenicity noted. Left Arm Left axillary vein is spontaneous, patent, phasic, competent, compressible and demonstrates augmentation. Left brachial vein is compressible. Left cephalic vein is compressible. Left basilic vein is compressible. Left Lower Arm Left radial vein is compressible. Left ulnar vein is compressible. Patient Safety Prelim to Vinicius. Interpretation Summary Deep veins of the left upper extremity are patent and compressible segmentally. There is no evidence of deep vein thrombosis. The superficial veins of the left upper extremity, the basilic and cephalic veins, are patent and compressible. There is no evidence of left upper extremity acute superficial thrombophlebitis involving the veins imaged. Ordering Physician: Ruben Colvin Referring Physician: Ruben Colvin Chi Performed By: Paula Barker RVT and Student ?
== END ==
PROVIDERS: PCP Family Medicine Geriatric Medicine; Referring Provider Family Medicine Geriatric Medicine; Visit Provider Family Medicine Geriatric Medicine
DX: R60.9 Edema, unspecified (principal); R60.0 Localized edema
CPT/HCPCS: 93971

== ENCOUNTER → 2020-08-16 13:34 | Outpatient (CLI) | payer MEDICARE, SELFPAY ==
[2020-08-16 15:49] LABS: Absolute Lymphocyte Count 2.58 X10^3/uL (0.83-4.51); Absolute Neutrophil Count 6.3 X10^3/uL (2.0-7.7); Basophil# 0.05 X10^3/uL; Basophil% 0.5 % (0-1); Eosinophil# 0.19 X10^3/uL; Eosinophils% 1.9 % (0-5); Hematocrit 47.5 % (40-54); Hemoglobin 15.2 g/dL (13.0-16.5); Lymphocyte # 2.58 X10^3/ul (4.0); Lymphocyte % 25.9 % (19-41); Mean Corpuscular Hgb 27.3 pg (27.0-32.0); Mean Corpuscular Volume 85.4 fL (80-94); Mean Platelet Vol. 11.6 fl (6.2-12.0); Monocyte# 0.84 X10^3/uL; Monocyte% 8.4 % (0-10); NRBC Flagged by Analyzer 0 % (0-5); Neutrophil # 6.27 X10^3/uL (2.7-7.7); Neutrophil % 62.8 % (47-70); Platelet Count 195 K/mm3 (150-450); RBC Distribution Width CV 13.6 % (11.6-14.6); RBC Distribution Width SD 42.5 fl (35.1-43.9); Red Blood Count 5.56 M/mm3 (4.6-6.2)
[2020-08-16 16:06] LABS: ALB/GLOB Ratio 0.9 RATIO (0.9-2.4); AST(SGOT) 33 U/L (15-37); Alanine Aminotransfer ALT/SGPT 43 U/L (16-61); Albumin, Serum 3.7 g/dL (3.2-5.0); Alkaline Phosphatase 88 U/L (45-117); Anion Gap 7 (5-15); BUN 20 mg/dL (7-18); BUN/Creat Ratio 17.9 RATIO (10-20); Calcium,Total 9.2 mg/dL (8.5-10.1); Chloride 103 mmol/L (98-107); Cholesterol 191 mg/dL (200); Creatinine, Serum 1.12 mg/dL (0.70-1.30); EST Glomerular Filtration Rate 68 mL/min (>60); Est Glom Filt Rate - Afr Amer 82 mL/min (>60); Glucose 101 mg/dL (74-106); High Density Lipoprotein 71 mg/dL; Potassium 4.2 mmol/L (3.5-5.1); Protein, Total 7.7 g/dL (6.4-8.2); Sodium Level 139 mmol/L (136-145); Thyroid Stim Hormone (TSH) 2.19 uIU/mL (0.358-3.74); Triglycerides 102 mg/dL; Very Low Density Lipoprotein 20 mg/dL (5-40)
[2020-08-16 16:08] LABS: Vitamin D,25 Hydroxy 32.3 ng/mL
== END ==
PROVIDERS: PCP Family Medicine Geriatric Medicine; Visit Provider Family Medicine Geriatric Medicine
DX: E11.65 Type 2 diabetes mellitus with hyperglycemia (principal); E55.9 Vitamin D deficiency, unspecified; E78.5 Hyperlipidemia, unspecified; I10 Essential (primary) hypertension
CPT/HCPCS: 36415; 80053; 80061; 82306; 84443; 85025

== ENCOUNTER → 2020-11-14 13:25 | Outpatient (CLI) | payer MEDICARE, SELFPAY ==
[2020-11-14 15:52] LABS: Absolute Lymphocyte Count 2.08 X10^3/uL (0.83-4.51); Absolute Neutrophil Count 5.1 X10^3/uL (2.0-7.7); Basophil# 0.03 X10^3/uL; Basophil% 0.4 % (0-1); Eosinophil# 0.11 X10^3/uL; Eosinophils% 1.4 % (0-5); Hematocrit 45.9 % (40-54); Hemoglobin 14.5 g/dL (13.0-16.5); Lymphocyte # 2.08 X10^3/ul (0.83-4.51); Lymphocyte % 25.7 % (19-41); Mean Corp Hgb Conc 31.6 g/dL (32-36); Mean Corpuscular Hgb 26.9 pg (27.0-32.0); Mean Corpuscular Volume 85.2 fL (80-94); Mean Platelet Vol. 11.4 fl (6.2-12.0); Monocyte# 0.75 X10^3/uL; Monocyte% 9.3 % (0-10); NRBC Flagged by Analyzer 0 % (0-5); Neutrophil # 5.08 X10^3/uL (2.7-7.7); Neutrophil % 62.8 % (47-70); Platelet Count 201 K/mm3 (150-450); RBC Distribution Width CV 13.3 % (11.6-14.6); RBC Distribution Width SD 41.2 fl (35.1-43.9); Red Blood Count 5.39 M/mm3 (4.6-6.2); White Blood Count 8.1 K/mm3 (4.4-11.0)
[2020-11-14 15:59] LABS: Vitamin D,25 Hydroxy 25.4 ng/mL
[2020-11-14 16:10] LABS: AST(SGOT) 23 U/L (15-37); Alanine Aminotransfer ALT/SGPT 37 U/L (16-61); Albumin, Serum 3.6 g/dL (3.2-5.0); Alkaline Phosphatase 84 U/L (45-117); Anion Gap 6 (5-15); BUN 18 mg/dL (7-18); BUN/Creat Ratio 17.1 RATIO (10-20); Calcium,Total 9.3 mg/dL (8.5-10.1); Chloride 103 mmol/L (98-107); Cholesterol 177 mg/dL (200); Creatinine, Serum 1.05 mg/dL (0.70-1.30); EST Glomerular Filtration Rate 73 mL/min (>60); Est Glom Filt Rate - Afr Amer 88 mL/min (>60); Globulin 3.6 g/dL (2.2-4.2); Glucose 93 mg/dL (74-106); High Density Lipoprotein 51 mg/dL; Potassium 3.7 mmol/L (3.5-5.1); Protein, Total 7.2 g/dL (6.4-8.2); Sodium Level 139 mmol/L (136-145); Thyroid Stim Hormone (TSH) 1.92 uIU/mL (0.358-3.74); Triglycerides 160 mg/dL; Very Low Density Lipoprotein 32 mg/dL (5-40)
== END ==
PROVIDERS: PCP Family Medicine Geriatric Medicine; Visit Provider Family Medicine Geriatric Medicine
DX: E11.65 Type 2 diabetes mellitus with hyperglycemia (principal); E55.9 Vitamin D deficiency, unspecified; E78.5 Hyperlipidemia, unspecified; I10 Essential (primary) hypertension
CPT/HCPCS: 36415; 80053; 80061; 82306; 84443; 85025

== ENCOUNTER → 2021-02-14 11:59 | Outpatient (CLI) | payer MEDICARE, SELFPAY ==
[2021-02-14 16:47] LABS: Absolute Lymphocyte Count 2.37 X10^3/uL (0.83-4.51); Absolute Neutrophil Count 6.2 X10^3/uL (2.0-7.7); Basophil# 0.03 X10^3/uL; Basophil% 0.3 % (0-1); Eosinophil# 0.19 X10^3/uL; Hemoglobin 14.5 g/dL (13.0-16.5); Lymphocyte # 2.37 X10^3/ul (0.83-4.51); Lymphocyte % 24.6 % (19-41); Mean Corp Hgb Conc 32.2 g/dL (32-36); Mean Corpuscular Volume 83.8 fL (80-94); Mean Platelet Vol. 10.9 fl (6.2-12.0); Monocyte# 0.86 X10^3/uL; Monocyte% 8.9 % (0-10); NRBC Flagged by Analyzer 0 % (0-5); Neutrophil # 6.15 X10^3/uL (2.7-7.7); Neutrophil % 63.9 % (47-70); Platelet Count 211 K/mm3 (150-450); RBC Distribution Width CV 13.9 % (11.6-14.6); RBC Distribution Width SD 42.5 fl (35.1-43.9); Red Blood Count 5.37 M/mm3 (4.6-6.2); White Blood Count 9.6 K/mm3 (4.4-11.0)
[2021-02-14 17:23] LABS: Vitamin D,25 Hydroxy 36.4 ng/mL
[2021-02-14 17:35] LABS: AST(SGOT) 22 U/L (15-37); Alanine Aminotransfer ALT/SGPT 31 U/L (16-61); Albumin, Serum 3.6 g/dL (3.2-5.0); Alkaline Phosphatase 89 U/L (45-117); Anion Gap 5 (5-15); BUN 26 mg/dL (7-18); BUN/Creat Ratio 26.3 RATIO (10-20); Chloride 105 mmol/L (98-107); Cholesterol 171 mg/dL (200); Creatinine, Serum 0.99 mg/dL (0.70-1.30); EST Glomerular Filtration Rate 78 mL/min (>60); Est Glom Filt Rate - Afr Amer 95 mL/min (>60); Globulin 3.7 g/dL (2.2-4.2); Glucose 86 mg/dL (74-106); High Density Lipoprotein 60 mg/dL; Potassium 4.4 mmol/L (3.5-5.1); Protein, Total 7.3 g/dL (6.4-8.2); Sodium Level 137 mmol/L (136-145); Thyroid Stim Hormone (TSH) 2.08 uIU/mL (0.358-3.74); Triglycerides 145 mg/dL; Very Low Density Lipoprotein 29 mg/dL (5-40)
== END ==
PROVIDERS: PCP Family Medicine Geriatric Medicine; Visit Provider Family Medicine Geriatric Medicine
DX: E11.65 Type 2 diabetes mellitus with hyperglycemia (principal); E55.9 Vitamin D deficiency, unspecified; E78.5 Hyperlipidemia, unspecified; I10 Essential (primary) hypertension
CPT/HCPCS: 36415; 80053; 80061; 82306; 84443; 85025

== ENCOUNTER → 2021-04-26 15:10 | Outpatient (CLI) | payer MEDICARE, SELFPAY ==
[2021-04-26 16:29] LABS: Absolute Lymphocyte Count 2.18 X10^3/uL (0.83-4.51); Absolute Neutrophil Count 5.3 X10^3/uL (2.0-7.7); Basophil# 0.04 X10^3/uL; Basophil% 0.5 % (0-1); Eosinophils% 3.5 % (0-5); Hematocrit 44.6 % (40-54); Hemoglobin 14.4 g/dL (13.0-16.5); Lymphocyte # 2.18 X10^3/ul (0.83-4.51); Lymphocyte % 25.1 % (19-41); Mean Corp Hgb Conc 32.3 g/dL (32-36); Mean Corpuscular Hgb 27.4 pg (27.0-32.0); Mean Platelet Vol. 10.9 fl (6.2-12.0); Monocyte# 0.83 X10^3/uL; Monocyte% 9.6 % (0-10); NRBC Flagged by Analyzer 0 % (0-5); Neutrophil # 5.29 X10^3/uL (2.7-7.7); Platelet Count 201 K/mm3 (150-450); RBC Distribution Width CV 13.7 % (11.6-14.6); RBC Distribution Width SD 42.5 fl (35.1-43.9); Red Blood Count 5.25 M/mm3 (4.6-6.2); White Blood Count 8.7 K/mm3 (4.4-11.0)
[2021-04-26 16:59] LABS: Vitamin D,25 Hydroxy 31.2 ng/mL
[2021-04-26 17:06] LABS: ALB/GLOB Ratio 0.9 RATIO (0.9-2.4); AST(SGOT) 24 U/L (15-37); Alanine Aminotransfer ALT/SGPT 41 U/L (16-61); Albumin, Serum 3.3 g/dL (3.2-5.0); Alkaline Phosphatase 92 U/L (45-117); Anion Gap 8 (5-15); BUN 22 mg/dL (7-18); BUN/Creat Ratio 16.7 RATIO (10-20); Calcium,Total 9.3 mg/dL (8.5-10.1); Chloride 102 mmol/L (98-107); Cholesterol 186 mg/dL (200); Creatinine, Serum 1.32 mg/dL (0.70-1.30); EST Glomerular Filtration Rate 56 mL/min (>60); Est Glom Filt Rate - Afr Amer 68 mL/min (>60); Globulin 3.6 g/dL (2.2-4.2); Glucose 97 mg/dL (74-106); High Density Lipoprotein 63 mg/dL; Potassium 4.3 mmol/L (3.5-5.1); Protein, Total 6.9 g/dL (6.4-8.2); Sodium Level 139 mmol/L (136-145); Thyroid Stim Hormone (TSH) 1.54 uIU/mL (0.358-3.74); Triglycerides 170 mg/dL; Very Low Density Lipoprotein 34 mg/dL (5-40)
== END ==
PROVIDERS: PCP Family Medicine Geriatric Medicine; Visit Provider Family Medicine Geriatric Medicine
DX: E11.65 Type 2 diabetes mellitus with hyperglycemia (principal); E55.9 Vitamin D deficiency, unspecified; E78.5 Hyperlipidemia, unspecified; F52.8 Other sexual dysfunction not due to a substance or known physiological condition; I10 Essential (primary) hypertension
CPT/HCPCS: 36415; 80053; 80061; 82306; 84403; 84443; 85025

== ENCOUNTER 2021-09-12 15:27 | Outpatient (CLI) | payer MEDICARE, SELFPAY ==
[2021-09-12 16:09] LABS: Absolute Lymphocyte Count 2.53 X10^3/uL (0.83-4.51); Absolute Neutrophil Count 4.8 X10^3/uL (2.0-7.7); Basophil# 0.03 X10^3/uL; Basophil% 0.4 % (0-1); Eosinophils% 2.4 % (0-5); Hematocrit 45.7 % (40-54); Lymphocyte # 2.53 X10^3/ul (0.83-4.51); Lymphocyte % 30.1 % (19-41); Mean Corp Hgb Conc 32.8 g/dL (32-36); Mean Corpuscular Hgb 27.7 pg (27.0-32.0); Mean Corpuscular Volume 84.5 fL (80-94); Mean Platelet Vol. 10.6 fl (6.2-12.0); Monocyte# 0.77 X10^3/uL; Monocyte% 9.2 % (0-10); NRBC Flagged by Analyzer 0 % (0-5); Neutrophil # 4.84 X10^3/uL (2.7-7.7); Neutrophil % 57.5 % (47-70); Platelet Count 183 K/mm3 (150-450); RBC Distribution Width CV 13.3 % (11.6-14.6); RBC Distribution Width SD 41.3 fl (35.1-43.9); Red Blood Count 5.41 M/mm3 (4.6-6.2); White Blood Count 8.4 K/mm3 (4.4-11.0)
[2021-09-12 16:45] LABS: BNP,B-Type NATRIURETIC PEPTIDE 38.7 pg/mL (0-100)
[2021-09-12 16:57] LABS: ALB/GLOB Ratio 0.9 RATIO (0.9-2.4); AST(SGOT) 62 U/L (15-37); Alanine Aminotransfer ALT/SGPT 81 U/L (16-61); Albumin, Serum 3.6 g/dL (3.2-5.0); Alkaline Phosphatase 78 U/L (45-117); Anion Gap 6 (5-15); BUN 22 mg/dL (7-18); BUN/Creat Ratio 19.8 RATIO (10-20); Calcium,Total 9.4 mg/dL (8.5-10.1); Chloride 100 mmol/L (98-107); Creatinine, Serum 1.11 mg/dL (0.70-1.30); EST Glomerular Filtration Rate 68 mL/min (>60); Est Glom Filt Rate - Afr Amer 83 mL/min (>60); Globulin 3.8 g/dL (2.2-4.2); Glucose 101 mg/dL (74-106); Potassium 4.3 mmol/L (3.5-5.1); Protein, Total 7.4 g/dL (6.4-8.2); Sodium Level 138 mmol/L (136-145); Thyroid Stim Hormone (TSH) 2.88 uIU/mL (0.358-3.74)
== END 2021-09-12 23:59 | disposition home or self-care (01) ==
LOC: POLAB3 15:28
PROVIDERS: PCP Family Medicine Geriatric Medicine; Visit Provider Family Medicine Geriatric Medicine
DX: R06.02 Shortness of breath (principal); R60.9 Edema, unspecified; F52.8 Other sexual dysfunction not due to a substance or known physiological condition
CPT/HCPCS: 36415; 80053; 83880; 84403; 84443; 85025

== ENCOUNTER 2021-09-19 15:18 | Outpatient (CLI) | payer MEDICARE, SELFPAY ==
[2021-09-19 17:25] LABS: AST(SGOT) 36 U/L (15-37); Alanine Aminotransfer ALT/SGPT 56 U/L (16-61); Albumin, Serum 3.6 g/dL (3.2-5.0); Alkaline Phosphatase 89 U/L (45-117); Anion Gap 2 (5-15); BUN 25 mg/dL (7-18); BUN/Creat Ratio 20.7 RATIO (10-20); Calcium,Total 9.8 mg/dL (8.5-10.1); Chloride 105 mmol/L (98-107); Creatinine, Serum 1.21 mg/dL (0.70-1.30); EST Glomerular Filtration Rate 62 mL/min (>60); Est Glom Filt Rate - Afr Amer 75 mL/min (>60); Globulin 3.5 g/dL (2.2-4.2); Glucose 101 mg/dL (74-106); Potassium 4.5 mmol/L (3.5-5.1); Protein, Total 7.1 g/dL (6.4-8.2); Sodium Level 138 mmol/L (136-145)
[2021-09-20 09:02] LABS: Hepatitis B Surface Antibody Non-Reactive
[2021-09-21 12:09] LABS: HEPATITIS B SURFACE AG Negative (Negative); Hepatitis A IgM Antibody Negative (Negative); Hepatitis B Core AB IgM Negative (Negative)
[2021-09-21 18:48] LABS: Hep C Antibodies <0.1 s/co ratio (0.0-0.9); Hepatitis A AB, Total Negative (Negative)
== END 2021-09-19 23:59 | disposition home or self-care (01) ==
PROVIDERS: PCP Family Medicine Geriatric Medicine; Visit Provider Family Medicine Geriatric Medicine
DX: K76.9 Liver disease, unspecified (principal); B18.8 Other chronic viral hepatitis; R94.4 Abnormal results of kidney function studies
CPT/HCPCS: 36415; 80053; 80074; 86706; 86708

== ENCOUNTER 2021-10-05 09:38 | Outpatient (CLI) | payer MEDICARE, SELFPAY ==
--- NOTE | 2021-10-05 09:50 | US_ITS ---
STUDY: ABDOMINAL ULTRASOUND - RIGHT UPPER QUADRANT REASON FOR VISIT: Male, 76 years old ABN LIVER ENZYMES TECHNIQUE: Ultrasound evaluation of the right upper quadrant was performed with real-time and static russell-scale imaging. TECHNICAL QUALITY: Adequate. COMPARISON: None. FINDINGS: Liver: The liver measures 17.9 and is slightly enlarged There is increased echogenicity consistent with fatty infiltration. The bile ducts are within normal limits. There is hepatic color flow. The direction of portal flow is hepatopetal. There is no demonstrated mass lesion. Gallbladder: Normal distended gallbladder. The gallbladder wall measures 2 mm. There is a negative sonographic Shah''s sign. There is no pericholecystic fluid. There are no gallstones. Common Bile Duct (C.B.D.): The common bile duct measures 3 mm and is within normal limits. Pancreas: The visualized head, body, and tail is unremarkable. Right Kidney: Normal size of the right kidney. The right kidney measures 10.5 x 6.4 x 5.0 cm. Normal renal cortex. The right cortex measures 1.1 cm. There is no demonstrated renal mass or cyst. There is no right hydronephrosis. US/Abdomen Limited IMPRESSION: Mild hepatomegaly and hepatic steatosis. No hepatic masses. Electronically Signed: Rodolfo Ramirez, at 11:44 EDT ,
[2021-10-05 17:25] LABS: Absolute Lymphocyte Count 1.92 X10^3/uL (0.83-4.51); Absolute Neutrophil Count 5.7 X10^3/uL (2.0-7.7); Basophil# 0.03 X10^3/uL; Basophil% 0.4 % (0-1); Eosinophil# 0.13 X10^3/uL; Eosinophils% 1.5 % (0-5); Hematocrit 45.3 % (40-54); Hemoglobin 14.7 g/dL (13.0-16.5); Lymphocyte # 1.92 X10^3/ul (0.83-4.51); Lymphocyte % 22.5 % (19-41); Mean Corp Hgb Conc 32.5 g/dL (32-36); Mean Corpuscular Hgb 28.4 pg (27.0-32.0); Mean Corpuscular Volume 87.6 fL (80-94); Mean Platelet Vol. 11.1 fl (6.2-12.0); Monocyte# 0.76 X10^3/uL; Monocyte% 8.9 % (0-10); NRBC Flagged by Analyzer 0 % (0-5); Neutrophil # 5.65 X10^3/uL (2.7-7.7); Neutrophil % 66.1 % (47-70); Platelet Count 204 K/mm3 (150-450); RBC Distribution Width CV 14.6 % (11.6-14.6); RBC Distribution Width SD 45.9 fl (35.1-43.9); Red Blood Count 5.17 M/mm3 (4.6-6.2); White Blood Count 8.5 K/mm3 (4.4-11.0)
[2021-10-05 17:42] LABS: ALB/GLOB Ratio 1.1 RATIO (0.9-2.4); AST(SGOT) 35 U/L (15-37); Alanine Aminotransfer ALT/SGPT 54 U/L (16-61); Albumin, Serum 3.6 g/dL (3.2-5.0); Alkaline Phosphatase 70 U/L (45-117); Anion Gap 3 (5-15); BUN 20 mg/dL (7-18); BUN/Creat Ratio 16.5 RATIO (10-20); Calcium,Total 9.1 mg/dL (8.5-10.1); Chloride 104 mmol/L (98-107); Creatinine, Serum 1.21 mg/dL (0.70-1.30); EST Glomerular Filtration Rate 62 mL/min (>60); Est Glom Filt Rate - Afr Amer 75 mL/min (>60); Globulin 3.4 g/dL (2.2-4.2); Glucose 140 mg/dL (74-106); Potassium 3.9 mmol/L (3.5-5.1); Sodium Level 139 mmol/L (136-145)
[2021-10-05 18:17] LABS: BNP,B-Type NATRIURETIC PEPTIDE 117.4 pg/mL (0-100)
== END 2021-10-05 23:59 | disposition home or self-care (01) ==
PROVIDERS: PCP Family Medicine Geriatric Medicine; Referring Provider Family Medicine Geriatric Medicine; Visit Provider Family Medicine Geriatric Medicine
DX: R06.02 Shortness of breath (principal); E87.6 Hypokalemia; R74.8 Abnormal levels of other serum enzymes
CPT/HCPCS: 36415; 76705; 80053; 83880; 85025

== ENCOUNTER 2021-10-12 13:27 | Outpatient (CLI) | payer MEDICARE, SELFPAY ==
[2021-10-12 17:07] LABS: Vitamin D,25 Hydroxy 43.7 ng/mL
[2021-10-12 17:14] LABS: Absolute Lymphocyte Count 2.35 X10^3/uL (0.83-4.51); Absolute Neutrophil Count 6.2 X10^3/uL (2.0-7.7); Basophil# 0.05 X10^3/uL; Basophil% 0.5 % (0-1); Eosinophil# 0.12 X10^3/uL; Eosinophils% 1.2 % (0-5); Hematocrit 46.5 % (40-54); Hemoglobin 14.7 g/dL (13.0-16.5); Lymphocyte # 2.35 X10^3/ul (0.83-4.51); Lymphocyte % 24.1 % (19-41); Mean Corp Hgb Conc 31.6 g/dL (32-36); Mean Corpuscular Hgb 27.2 pg (27.0-32.0); Mean Corpuscular Volume 86.1 fL (80-94); Mean Platelet Vol. 11.1 fl (6.2-12.0); Monocyte# 1.05 X10^3/uL; Monocyte% 10.7 % (0-10); NRBC Flagged by Analyzer 0 % (0-5); Neutrophil # 6.17 X10^3/uL (2.7-7.7); Neutrophil % 63.2 % (47-70); Platelet Count 212 K/mm3 (150-450); RBC Distribution Width CV 14.2 % (11.6-14.6); RBC Distribution Width SD 43.5 fl (35.1-43.9); White Blood Count 9.8 K/mm3 (4.4-11.0)
[2021-10-12 17:18] LABS: AST(SGOT) 27 U/L (15-37); Alanine Aminotransfer ALT/SGPT 46 U/L (16-61); Albumin, Serum 3.7 g/dL (3.2-5.0); Alkaline Phosphatase 90 U/L (45-117); Anion Gap 3 (5-15); BUN 21 mg/dL (7-18); BUN/Creat Ratio 17.4 RATIO (10-20); Calcium,Total 9.8 mg/dL (8.5-10.1); Chloride 100 mmol/L (98-107); Cholesterol 131 mg/dL (200); Creatinine, Serum 1.21 mg/dL (0.70-1.30); EST Glomerular Filtration Rate 62 mL/min (>60); Est Glom Filt Rate - Afr Amer 75 mL/min (>60); Globulin 3.8 g/dL (2.2-4.2); Glucose 115 mg/dL (74-106); High Density Lipoprotein 45 mg/dL; Potassium 4.6 mmol/L (3.5-5.1); Protein, Total 7.5 g/dL (6.4-8.2); Sodium Level 135 mmol/L (136-145); Thyroid Stim Hormone (TSH) 2.67 uIU/mL (0.358-3.74); Triglycerides 161 mg/dL; Very Low Density Lipoprotein 32 mg/dL (5-40)
== END 2021-10-12 23:59 | disposition home or self-care (01) ==
LOC: POLAB3 13:28
PROVIDERS: PCP Family Medicine Geriatric Medicine; Visit Provider Family Medicine Geriatric Medicine
DX: E11.65 Type 2 diabetes mellitus with hyperglycemia (principal); E23.6 Other disorders of pituitary gland; E55.9 Vitamin D deficiency, unspecified; E78.5 Hyperlipidemia, unspecified; I10 Essential (primary) hypertension
CPT/HCPCS: 36415; 80053; 80061; 82306; 84403; 84443; 85025

== ENCOUNTER 2021-10-18 08:44 | Outpatient (CLI) | payer MEDICARE, SELFPAY ==
--- NOTE | 2021-10-18 08:47 | US_ITS ---
STUDY: ABDOMINAL ULTRASOUND - ELASTOGRAPHY REASON FOR VISIT: Male, 76 years old. Fatty infiltration of the liver. TECHNIQUE: Liver stiffness measurements were obtained on a [employer] RS 85 ultrasound machine using a CA 1-7 probe following the SRU guidelines. 3 measurements were obtained using a 2-D-SWE method. The IQR/M was 23% suggesting a quality data set. TECHNICAL QUALITY: Adequate. COMPARISON: Comparison is made with prior examination of 10/05/2021. FINDINGS: Liver: Fatty infiltration of the liver. Median liver stiffness measured 16 kPa. US/Elastography Parenchyma/Organ IMPRESSION: Liver stiffness measures 16 kPa compatible with F3-F4 (Moderate to severe liver fibrosis) Metavir score. Electronically Signed: Anil Phillips MD at 10:06 EDT ,
--- NOTE | 2021-10-18 15:43 | PFTCOMP ---
COMPLETE PULMONARY FUNCTION TEST INTERPRETATION Brief HPI: Patient is a 76 year old male, currently under the care of Dr. Colvin, who presents to [facility] for complete pulmonary function tests secondary to diagnosis of dyspnea. Respiratory therapist reports good effort and reproducible results. Interpretation: Forced expiration spirometry shows no large airways obstructive ventilatory defect with an FEV1 of 66% predicted. There is a significant bronchodilator response in FVC by strict ATS criteria. Spirograms are of poor quality and do not plateau, likely underestimating FVC in the prebronchodilator phase. The respiratory flow volume loop shows a normal pattern. Lung volumes by body plethysmography show a severely decreased total lung capacity at 3.72 L, 54% predicted. All other lung volumes are reduced symmetrically. Diffusion capacity by carbon monoxide is decreased at 55% predicted. The airway resistance is elevated. No previous pulmonary function tests were available for review. Impression: Severe restrictive ventilatory defect with a symmetric reduction diffusing capacity.
== END 2021-10-18 23:59 | disposition home or self-care (01) ==
LOC: US 08:45
PROVIDERS: PCP Family Medicine Geriatric Medicine; Visit Provider Family Medicine Geriatric Medicine
DX: K76.0 Fatty (change of) liver, not elsewhere classified (principal); R06.02 Shortness of breath
CPT/HCPCS: 76981; 94060; 94726; 94729

== ENCOUNTER 2021-10-26 12:58 | Outpatient (CLI) | payer MEDICARE, SELFPAY ==
--- NOTE | 2021-10-26 13:03 | ECHOCS_ITS ---
Reason For Study: SOB Procedure This was a 2D Doppler, Color Flow transthoracic echocardiogram. The study was technically difficult. Due to body habitus and rib pain from recent fall. Contrast injection was performed. Exam performed in department. Left Ventricle Normal LV size. Moderate concentric left ventricular hypertrophy. Left ventricular systolic function is normal. The estimated ejection fraction is 65 %. Stage 1 diastolic dysfunction. No regional wall motion abnormalities noted. Right Ventricle Normal RV size. Normal systolic function. Atria Normal left atrium. Normal right atrium. Mitral Valve Normal mitral valve. Tricuspid Valve Normal tricuspid valve. Mild (1+) tricuspid valve insufficiency. Pulmonary artery systolic pressure is 25 mmHg. Aortic Valve Peak aortic valve gradient 18 mmHg. Mean aortic valve gradient 9 mmHg. Bioprosthetic aortic valve. Pulmonic Valve The pulmonic valve is not well visualized. Great Vessels Normal aortic root. The pulmonary artery is normal size. Normal inferior vena cava. Pericardium/Pleural No pericardial effusion. Medication 22 gauge I.V. with prn adaptor inserted into right arm. Diluted definity 3.0ml given slow IV push to enhance endocardial definition. MMode/2D Measurements & Calculations LVIDd: 4.9 cm IVSd: 1.3 cm LVOT diam: 2.1 cm LVIDs: 3.1 cm LVPWd: 1.3 cm RVDd: 3.2 cm FS: 36.4 % LVOT area: 3.5 cm2 Ao root diam: 4.2 cm LAV(MOD-bp): 71.7 ml LA A4 area: 21.4 cm2 LAV(MOD-bp) Indexed: 28.9 ml/m2 LAV(MOD-sp2): 73.5 ml LAV(MOD-sp4): 68.6 ml LA dimension(2D): 4.5 cm RA A4 area: 13.6 cm2 Time Measurements MV dec time: 0.24 sec Doppler Measurements & Calculations MV E max tip: 70.8 cm/sec Lat Peak E' Tip: 7.0 cm/sec Med Peak E' Tip: 6.3 cm/sec MV A max tip: 94.2 cm/sec E/E' lat: 10.2 E/E' med: 11.2 MV E/A: 0.75 Ao V2 max: 211.2 cm/sec LV V1 max: 115.8 cm/sec SV(LVOT): 91.2 ml Ao max P.8 mmHg LV V1 max P.4 mmHg Ao V2 mean: 147.1 cm/sec LV V1 mean P.2 mmHg Ao mean P.8 mmHg LV V1 mean: 85.5 cm/sec Ao V2 VTI: 44.7 cm LV V1 VTI: 26.4 cm CARMEN(I,D): 2.0 cm2 CARMEN(V,D): 1.9 cm2 PA V2 max: 101.4 cm/sec TR max tip: 224.4 cm/sec TR max P.1 mmHg ECHO/Echo Complete W/ Contrast Interpretation Summary Normal LV size. Left ventricular systolic function is normal. The estimated ejection fraction is 65 %. Stage 1 diastolic dysfunction. Moderate concentric left ventricular hypertrophy. Bioprosthetic aortic valve. Ordering Physician: Ruben Colvin Referring Physician: Ruben Colvin Chi Performed By: Luisa Villaseñor RDCS, RVT
== END 2021-10-26 23:59 | disposition home or self-care (01) ==
LOC: CVS 13:01
PROVIDERS: PCP Family Medicine Geriatric Medicine; Referring Provider Family Medicine Geriatric Medicine; Visit Provider Family Medicine Geriatric Medicine
DX: R06.02 Shortness of breath (principal)
CPT/HCPCS: 93306; Q9957; A4216; C8929

== ENCOUNTER → 2021-12-07 | Outpatient (CLI) | payer MEDICARE, SELFPAY ==
--- NOTE | 2021-12-07 16:19 | RAD_ITS ---
EXAM: XR CHEST, 2 VIEWS CLINICAL INDICATION: DYSPNEA TECHNIQUE: Frontal and lateral views of the chest. This report was created using Floobits report generation technology. COMPARISON: None. FINDINGS: LUNGS AND PLEURAL SPACES: Pulmonary vascular congestion. Prominent pulmonary septal lines in the lower lobes. No pneumothorax. No effusion. HEART: Borderline cardiomegaly. Sternal wires status post coronary artery bypass graft. MEDIASTINUM: Central airways and mediastinal contour are unremarkable. BONES/JOINTS: Unremarkable. SOFT TISSUES: Unremarkable. RAD/Chest PA and Lateral IMPRESSION: Pulmonary vascular congestion and probable mild interstitial edema with borderline cardiomegaly. Probable mild CHF. Electronically Signed: Jeffrey Esquivel MD at 1:21 EDT ,
== END | disposition home or self-care (01) ==
PROVIDERS: PCP Family Medicine Geriatric Medicine; Referring Provider Internal Medicine Pulmonary Disease; Visit Provider Internal Medicine Pulmonary Disease
DX: R06.00 Dyspnea, unspecified (principal)
CPT/HCPCS: 71046

== ENCOUNTER → 2022-01-11 | Outpatient (CLI) | payer MEDICARE, SELFPAY ==
[2022-01-11 16:18] LABS: Absolute Lymphocyte Count 3.05 X10^3/uL (0.83-4.51); Absolute Neutrophil Count 4.6 X10^3/uL (2.0-7.7); Basophil# 0.06 X10^3/uL; Basophil% 0.7 % (0-1); Eosinophil# 0.21 X10^3/uL; Eosinophils% 2.4 % (0-5); Hemoglobin 14.6 g/dL (13.0-16.5); Lymphocyte # 3.05 X10^3/ul (0.83-4.51); Mean Corp Hgb Conc 31.7 g/dL (32-36); Mean Corpuscular Hgb 26.5 pg (27.0-32.0); Mean Corpuscular Volume 83.6 fL (80-94); Mean Platelet Vol. 10.8 fl (6.2-12.0); Monocyte# 0.79 X10^3/uL; Monocyte% 9.1 % (0-10); NRBC Flagged by Analyzer 0 % (0-5); Neutrophil # 4.58 X10^3/uL (2.7-7.7); Neutrophil % 52.5 % (47-70); Platelet Count 200 K/mm3 (150-450); RBC Distribution Width CV 14.8 % (11.6-14.6); RBC Distribution Width SD 44.8 fl (35.1-43.9); White Blood Count 8.7 K/mm3 (4.4-11.0)
[2022-01-11 16:31] LABS: Vitamin D,25 Hydroxy 34.7 ng/mL
[2022-01-11 16:39] LABS: ALB/GLOB Ratio 0.9 RATIO (0.9-2.4); AST(SGOT) 56 U/L (15-37); Alanine Aminotransfer ALT/SGPT 81 U/L (16-61); Albumin, Serum 3.6 g/dL (3.2-5.0); Alkaline Phosphatase 89 U/L (45-117); Anion Gap 6 (5-15); BUN 25 mg/dL (7-18); BUN/Creat Ratio 19.8 RATIO (10-20); Calcium,Total 9.8 mg/dL (8.5-10.1); Chloride 101 mmol/L (98-107); Cholesterol 175 mg/dL (200); Creatinine, Serum 1.26 mg/dL (0.70-1.30); EST Glomerular Filtration Rate 59 mL/min (>60); Est Glom Filt Rate - Afr Amer 71 mL/min (>60); Globulin 4.1 g/dL (2.2-4.2); Glucose 116 mg/dL (74-106); High Density Lipoprotein 55 mg/dL; Potassium 4.2 mmol/L (3.5-5.1); Protein, Total 7.7 g/dL (6.4-8.2); Sodium Level 137 mmol/L (136-145); Thyroid Stim Hormone (TSH) 3.14 uIU/mL (0.358-3.74); Triglycerides 166 mg/dL; Very Low Density Lipoprotein 33 mg/dL (5-40)
== END | disposition home or self-care (01) ==
LOC: POLAB3 13:04
PROVIDERS: PCP Family Medicine Geriatric Medicine; Visit Provider Family Medicine Geriatric Medicine
DX: E11.65 Type 2 diabetes mellitus with hyperglycemia (principal); E23.6 Other disorders of pituitary gland; E55.9 Vitamin D deficiency, unspecified; E78.5 Hyperlipidemia, unspecified; I10 Essential (primary) hypertension
CPT/HCPCS: 36415; 80053; 80061; 82306; 84403; 84443; 85025

== ENCOUNTER → 2022-06-01 | Outpatient (CLI) | payer MEDICARE, SELFPAY ==
--- NOTE | 2022-06-01 | LES_PTH ---
PATIENT: FERNANDEZ WHITE LOC: [facility] U#:[id number] AGE/SX: 77/M ROOM: RE06/01/[address]: Dr. Vineet Dacosta MD : 1945 BED: DIS: 06/01/2022 SPEC #: [id number] RECD: 06/01/22 17:35 STATUS: FRANCESCO REQ #: [id number] WILMAR: 06/01/22 00:[address]: Vineet Dacosta DEPT: SURGICAL PATHOLOGY RECD BY: Get Barksdale ENTERED: 06/04/22 09:35 SP TYPE: Lesion OTHR DR: Dr. Ruben Colvin MD Tissues: Skin of eyelid, NOS Procedures: Surgery Specimen Level IV HEADER OPERATION: Excision, nasal left upper eyelid PRE-OP DIAGNOSIS: Left upper eyelid lesion TISSUE SUBMITTED: Right upper lid lesion MICROSCOPIC DIAGNOSIS Right upper lid lesion, biopsy: Squamous papilloma. /SJ 06/05/22 MICROSCOPIC DESCRIPTION Slides are reviewed. GROSS DESCRIPTION Received is one container labeled with the patient name and designated left upper eyelid lesion. The specimen consists of one irregular piece dickson white skin that measures 0.4 x 0.3 x 0.1 cm. The specimen is totally submitted in one cassette. /LIVIA:cc 06/04/22 TC:1 CPT:96883
== END | disposition home or self-care (01) ==
PROVIDERS: PCP Family Medicine Geriatric Medicine; Visit Provider Ophthalmology
DX: D23.111 Other benign neoplasm of skin of right upper eyelid, including canthus (principal)
CPT/HCPCS: 88305